=== PATIENT | female | born 1950 | race African-American/Black ===

== ENCOUNTER 2017-01-14 12:29 | Emergency (ER) | payer OTHER ==
[~2017-01-14] VITALS: Ht 152.4 cm; Wt 67.0 kg
[2017-01-14] MEDS ORDERED: KETOROLAC 60MG/2ML VIAL IM ONE (14:45)
[2017-01-14 15:21] VITALS: BP 103/78
== END 2017-01-14 15:57 | disposition home or self-care (01) ==
LOC: ER 15:24
DX: M72.2 Plantar fascial fibromatosis (principal); E11.9 Type 2 diabetes mellitus without complications; I10 Essential (primary) hypertension
CPT/HCPCS: 73630; 96372; 99284; J1885; Z7610

== ENCOUNTER 2018-04-10 17:57 | Inpatient (IN) | payer OTHER, MEDICAID ==
[~2018-04-10] VITALS: Ht 160 cm; Wt 49.9 kg
[~2018-04-10 17:57] MED LIST: DIAZ10TA PO; HYDR-4009 PO
[2018-04-10] MEDS ORDERED: AMIT10TA6 PO (18:05)
[2018-04-10 18:55] LABS: BASOPHILS % 0.5 % (0.0-2.0); EOSINOPHILS % 0.1 % (0.0-5.0); HEMOGLOBIN. 7.5 g/dL (12.0-16.0); LYMPHOCYTES % 13.2 % (20.0-50.0); MEAN PLATELET VOLUME 7.6 fl (7.4-10.4); MONOCYTES % 5.5 % (2.0-8.0); NEUTROPHILS % 80.7 % (40.0-76.0); PLATELET 380 x1000/uL (130-400); RED BLOOD CELL COUNT 2.28 mill/uL (4.2-5.4); RED CELL DISTRIBUTION WIDTH 20.1 % (11.6-14.6)
[2018-04-10 19:04] LABS: INR 1.3; PARTIAL THROMBOPLASTIN TIME 32.1 sec (23.4-31.0); PROTHROMBIN TIME 12.7 sec (9.1-11.1)
[2018-04-10 19:05] LABS: CHLORIDE 108 mEq/L (98-107)
[2018-04-11] VITALS (9 sets, daily range): BP systolic 90–115; BP diastolic 54–70
[2018-04-11] MEDS ORDERED: ACETAMINOPHEN 325MG TABLET PO PRN (01:15)
[2018-04-11] MEDS ORDERED: TEMAZEPAM 15MG CAPSULE PO PRN (01:15)
[2018-04-11] MEDS ORDERED: LORAZEPAM 2MG/ML CPJ IV PRN (01:15)
[2018-04-11] MEDS ORDERED: SODIUM CHLORIDE 0.45% 1,000 ML IV SCH (02:30)
[2018-04-11] MEDS ORDERED: CYANOCOBALAMIN 1000MCG/ML VIAL IM NR (02:30)
[2018-04-11] MEDS ORDERED: POTASSIUM CHLORIDE 20MEQ TABLET SR PO SCH (02:30)
[2018-04-11] MEDS: PANTOPRAZOLE 40MG DR TABLET PO SCH (06:17)
[2018-04-11 07:21] LABS: CHLORIDE 111 mEq/L (98-107)
[2018-04-11 07:24] LABS: BASOPHILS % 0.6 % (0.0-2.0); HEMATOCRIT. 23.4 % (36.0-48.0); HEMOGLOBIN. 7.6 g/dL (12.0-16.0); LYMPHOCYTES % 16.1 % (20.0-50.0); MEAN CORPUSCULAR HEMOGLOBIN 32.7 pg (28.0-32.0); MEAN CORPUSCULAR VOLUME 100.5 fL (81.0-99.0); MEAN PLATELET VOLUME 7.4 fl (7.4-10.4); MONOCYTES % 5.1 % (2.0-8.0); NEUTROPHILS % 78.2 % (40.0-76.0); PLATELET 378 x1000/uL (130-400); RED BLOOD CELL COUNT 2.33 mill/uL (4.2-5.4); RED CELL DISTRIBUTION WIDTH 20.3 % (11.6-14.6)
[2018-04-11] MEDS: FOLIC ACID 1MG TABLET PO SCH (10:32)
[2018-04-11 10:47] LABS: *AMPHETAMINES SCREEN URINE NEGATIVE (NEGATIVE); *BARBITURATES SCREEN URINE NEGATIVE (NEGATIVE); *BENZODIAZEPINES SCREEN URINE PRESUMTIVE POSITIVE (NEGATIVE); *COCAINE SCREEN URINE NEGATIVE (NEGATIVE); CANNABINOID URINE SCREEN PRESUMTIVE POSITIVE (NEGATIVE); METHADONE URINE SCREEN NEGATIVE (NEGATIVE); OPIATES URINE SCREEN PRESUMTIVE POSITIVE (NEGATIVE); PHENCYCLIDINE URINE SCREEN NEGATIVE (NEGATIVE)
[2018-04-11] MEDS ORDERED: HYDROCODONE/ACETAMINOPHEN 5/325MG TABLET PO PRN (20:30)
[2018-04-11] MEDS ORDERED: FUROSEMIDE 40MG/4ML VIAL IV SCH (20:30)
[2018-04-12] VITALS (9 sets, daily range): BP systolic 58–128; BP diastolic 61–84
[2018-04-12 06:33] LABS: HEMATOCRIT 29.9 % (36.0-48.0); HEMOGLOBIN 10.2 g/dL (12.0-16.0); MEAN CORPUSCULAR HEMOGLOBIN 32.5 pg (28.0-32.0); MEAN CORPUSCULAR VOLUME 95.6 fL (81.0-99.0); PLATELET 388 x1000/uL (130-400); RED BLOOD CELL COUNT 3.12 mill/uL (4.2-5.4)
[2018-04-12] MEDS: PANTOPRAZOLE 40MG DR TABLET PO SCH (06:36)
[2018-04-12] MEDS ORDERED: FURO40TA5 PO (07:20)
[2018-04-12] MEDS: FOLIC ACID 1MG TABLET PO SCH (08:52)
[2018-04-12] MEDS ORDERED: FUROSEMIDE 40MG/4ML VIAL IVP SCH ×2 (09:00→14:30)
== END 2018-04-12 20:35 | disposition home health service (06) | DRG 917 ==
LOC: ER 17:57 → 5WST 21:12 → ENRESERV 22:11
PROVIDERS: ADMIT Internal Medicine; ATTEND Internal Medicine
PROC: 30233N1 Transfusion of Nonautologous Red Blood Cells into Peripheral Vein, Percutaneous Approach (ICD-10-PCS; principal; 2018-04-11)
DX: T43.011A Poisoning by tricyclic antidepressants, accidental (unintentional), initial encounter (principal); G92 Toxic encephalopathy; D63.8 Anemia in other chronic diseases classified elsewhere; G90.8 Other disorders of autonomic nervous system; E03.9 Hypothyroidism, unspecified; E86.0 Dehydration; G62.9 Polyneuropathy, unspecified; M79.89 Other specified soft tissue disorders; I10 Essential (primary) hypertension; M19.90 Unspecified osteoarthritis, unspecified site; Z79.899 Other long term (current) drug therapy; Z98.84 Bariatric surgery status; Y92.89 Other specified places as the place of occurrence of the external cause; Z86.711 Personal history of pulmonary embolism
CPT/HCPCS: 36415; 36430; 71045; 80048; 80305; 82962; 83036; 83540; 83550; 83880; 84439; 84443; 84484; 85027; 86850; 86870; 86900; 86920; 93005; 93970; 97162; 99285; J1940; J3420; J7050; P9016

== ENCOUNTER 2018-07-22 12:33 | Inpatient (IN) | payer OTHER, MEDICAID ==
[~2018-07-22] VITALS: Ht 144.8 cm; Wt 62.1 kg
[~2018-07-22 12:33] MED LIST changes: +FURO40TA5 PO
[2018-07-22] MEDS ORDERED: MORPHINE SULFATE 4 MG/ML CPJ (NOT FOR IM USE) IV STA (18:33)
[2018-07-22] MEDS ORDERED: SODIUM CHLORIDE 0.9% 1,000 ML IV ONE ×3 (18:33→22:09)
[2018-07-22] MEDS ORDERED: ONDANSETRON HCL 4MG/2ML INJ IV STA (18:33)
[2018-07-22 19:29] LABS: CLARITY URINE CLEAR (CLEAR); COLOR URINE YELLOW (YELLOW); KETONES URINE NEGATIVE (NEGATIVE); LEUKOCYTE ESTERASE URINE 1+ (NEGATIVE); NITRITE URINE NEGATIVE (NEGATIVE); OCCULT BLOOD URINE NEGATIVE (NEGATIVE); PROTEIN URINE NEGATIVE (NEGATIVE); SPECIFIC GRAVITY URINE 1.014 (1.005-1.030); UROBILINOGEN URINE 0.2 E.U./dL (0.2-1.0)
[2018-07-22 20:02] LABS: HEMOGLOBIN. 9.2 g/dL (12.0-16.0); MEAN CORPUSCULAR HEMOGLOBIN 30.3 pg (28.0-32.0); MEAN CORPUSCULAR VOLUME 95.7 fL (81.0-99.0); MEAN PLATELET VOLUME 8.3 fl (7.4-10.4); PLATELET 422 x1000/uL (130-400); RED BLOOD CELL COUNT 3.03 mill/uL (4.2-5.4); RED CELL DISTRIBUTION WIDTH 15.9 % (11.6-14.6)
[2018-07-22 20:06] LABS: CHLORIDE 102 mEq/L (98-107)
[2018-07-22 20:07] LABS: INR 1.3; PROTHROMBIN TIME 13.3 sec (9.1-11.1)
[2018-07-22] MEDS ORDERED: LEVOFLOXACIN 750MG PREMIX 150 ML IV ONE (20:15)
[2018-07-22] MEDS ORDERED: PIPERACILLIN/TAZ 3.375G PREMIX 50 ML IV ONE (20:15)
[2018-07-22] MEDS ORDERED: DEXTROSE 50% WATER 50ML SYRINGE IV ONE (20:15)
[2018-07-22 20:27] LABS: PLATELET ESTIMATE INCREASED
[2018-07-22] MEDS ORDERED: NOREPINEPHRINE 4 MG in DEXT 5% WATER 246 ML IV ONE (22:30)
[2018-07-22] MEDS ORDERED: GENTAMICIN 80MG PREMIX 100 ML IV ONE (22:30)
[2018-07-22] MEDS ORDERED: NOREPINEPHRINE 4MG/250ML PMX 250 ML IV ONE (23:00)
[2018-07-22] MEDS ORDERED: BUPIVACAINE HCL 0.5% (5MG/ML) 50ML ONE (23:01)
[2018-07-22] MEDS ORDERED: ALBUMIN HUMAN 12.5G/250ML (5%) IV ONE (23:02)
[2018-07-22] MEDS ORDERED: NEOSTIGMINE METHYLSULFATE 1MG/ML 10 ML VIAL ONE (23:13)
[2018-07-22] MEDS ORDERED: ROCURONIUM BROMIDE 10MG/ML VIAL 5ML IV ONE (23:13)
[2018-07-22] MEDS ORDERED: GLYCOPYRROLATE 0.2 MG/ML 2ML VIAL ONE (23:13)
[2018-07-22] MEDS ORDERED: PROPOFOL 200MG/20ML VIAL IV ONE (23:13)
[2018-07-22] MEDS ORDERED: MIDAZOLAM HCL 2 MG/2 ML VIAL ONE (23:13)
[2018-07-22] MEDS ORDERED: FENTANYL CITRATE/PF 50MCG/ML 2ML VIAL ONE (23:13)
[2018-07-22] MEDS ORDERED: LIDOCAINE HCL/PF 1% 10 MG/ML 5ML VIAL ONE (23:13)
[2018-07-22] MEDS ORDERED: SODIUM CHLORIDE 0.9% 10ML VIAL ONE (23:13)
[2018-07-22] MEDS ORDERED: CEFAZOLIN SODIUM 1000MG/VIAL ONE (23:13)
[2018-07-22] MEDS ORDERED: ONDANSETRON HCL 4MG/2ML INJ ONE (23:14)
[2018-07-22] MEDS ORDERED: PHENYLEPHRINE HCL 10 MG/ML 1ML (IV VIAL) IV ONE (23:14)
[2018-07-22] MEDS ORDERED: METOCLOPRAMIDE HCL 10MG/2ML VIAL ONE (23:14)
[2018-07-22] MEDS ORDERED: SUCCINYLCHOLINE CHLORIDE 200MG/10ML IV ONE (23:14)
[2018-07-22] MEDS ORDERED: EPHEDRINE SULFATE 50MG/ML VIAL ONE (23:14)
[2018-07-22] MEDS ORDERED: ETOMIDATE 2MG/ML 10ML VIAL IV ONE (23:17)
[2018-07-23] VITALS (83 sets, daily range): BP systolic 53–174; BP diastolic 24–110
[2018-07-23] MEDS ORDERED: ROCURONIUM BROMIDE 10MG/ML VIAL 5ML IV ONE (00:20)
[2018-07-23] MEDS ORDERED: DEXT 5%/0.45% NACL KCL 20MEQ/L 1,000 ML IV SCH ×2 (02:11→06:00)
[2018-07-23] MEDS ORDERED: CEFAZOLIN 1000MG PREMIX 50 ML IV SCH (02:15)
[2018-07-23] MEDS ORDERED: ONDANSETRON HCL 4MG/2ML INJ IV PRN ×2 (02:15→02:30)
[2018-07-23] MEDS ORDERED: MORPHINE SULFATE 2 MG/ML CPJ (NOT FOR IM USE) IV PRN (02:15)
[2018-07-23] MEDS ORDERED: METRONIDAZOLE 500 MG PREMIX 100 ML IV SCH (02:15)
[2018-07-23] MEDS ORDERED: MORPHINE SULFATE 4 MG/ML CPJ (NOT FOR IM USE) IV PRN (02:30)
[2018-07-23 04:13] LABS: BG BASE EXCESS -10.7 mmol/L (-2.0-2.0); BG CARBOXYHEMOGLOBIN 0.2 % (0.5-1.5); BG DEOXYHEMOGLOBIN 3.1 % (0.0-5.0); BG FRACTION INSPIRED OXYGEN 100; BG HCO3 ACT 16.5 mmol/L (22.0-26.0); BG METHEMOGLOBIN 0.3 % (0.0-1.5); BG OXYGEN SATURATION 96.9 % (92.0-98.5); BG OXYHEMOGLOBIN 96.4 % (94.0-97.0); BG PCO2 41.8 mmHg (35.0-45.0); BG PH 7.214 (7.350-7.450); BG PO2 431.3 mmHg (75.0-100.0); BG SAMPLE SITE A-LINE; BG TIDAL VOLUME(mL) 450 mL; BG TOTAL HEMOGLOBIN 11.2 g/dL (12.0-18.0); BG VENT MODE VENT - A/C; BG VENT RATE 8 set
[2018-07-23] MEDS ORDERED: SODIUM BICARBONATE 8.4% 1 MEQ/ML 50ML SYR IV NR (04:45)
[2018-07-23] MEDS ORDERED: DEXT 5%/0.45% NACL 1000ML 1,000 ML IV SCH (04:45)
[2018-07-23 05:22] LABS: HEMATOCRIT 37.9 % (36.0-48.0); HEMOGLOBIN 12.2 g/dL (12.0-16.0); MEAN CORPUSCULAR HEMOGLOBIN 30.4 pg (28.0-32.0); MEAN CORPUSCULAR VOLUME 94.5 fL (81.0-99.0); PLATELET 266 x1000/uL (130-400)
[2018-07-23 05:26] LABS: CHLORIDE 113 mEq/L (98-107)
[2018-07-23] MEDS: METRONIDAZOLE 500 MG PREMIX 100 ML IV SCH ×3 (08:24→22:52)
[2018-07-23] MEDS: CEFAZOLIN 1000MG PREMIX 50 ML IV SCH ×2 (08:46→17:14)
[2018-07-23] MEDS ORDERED: FAMOTIDINE 20MG/2ML VIAL IV SCH (09:00)
[2018-07-23 09:40] LABS: BG BASE EXCESS -4.7 mmol/L (-2.0-2.0); BG CARBOXYHEMOGLOBIN 0.2 % (0.5-1.5); BG DEOXYHEMOGLOBIN 3.7 % (0.0-5.0); BG FRACTION INSPIRED OXYGEN 50; BG HCO3 ACT 16.8 mmol/L (22.0-26.0); BG METHEMOGLOBIN 0.3 % (0.0-1.5); BG OXYGEN SATURATION 96.3 % (92.0-98.5); BG OXYHEMOGLOBIN 95.8 % (94.0-97.0); BG PCO2 22.4 mmHg (35.0-45.0); BG PH 7.493 (7.350-7.450); BG PO2 290.6 mmHg (75.0-100.0); BG SAMPLE SITE A-LINE; BG TIDAL VOLUME(mL) 450 mL; BG TOTAL HEMOGLOBIN 12.1 g/dL (12.0-18.0); BG VENT MODE VENT - A/C; BG VENT RATE 16 set
[2018-07-23] MEDS: FAMOTIDINE 20MG/2ML VIAL IV SCH (10:22)
[2018-07-23] MEDS ORDERED: POTASSIUM CHLORIDE INJ 40 MEQ in DEXT 5% WATER 250 ML IV NR ×2 (11:30→16:00)
[2018-07-23] MEDS ORDERED: LACTATED RINGERS 500 ML IV ONE (14:15)
[2018-07-23 15:36] LABS: BG BASE EXCESS -7.4 mmol/L (-2.0-2.0); BG CARBOXYHEMOGLOBIN 0.3 % (0.5-1.5); BG DEOXYHEMOGLOBIN 3.4 % (0.0-5.0); BG FRACTION INSPIRED OXYGEN 50; BG HCO3 ACT 15.8 mmol/L (22.0-26.0); BG METHEMOGLOBIN 0.3 % (0.0-1.5); BG OXYGEN SATURATION 96.6 % (92.0-98.5); BG PCO2 25.4 mmHg (35.0-45.0); BG PH 7.411 (7.350-7.450); BG SAMPLE SITE LEFT BRACHIAL; BG TIDAL VOLUME(mL) 450 mL; BG TOTAL HEMOGLOBIN 10.8 g/dL (12.0-18.0); BG VENT MODE VENT - A/C; BG VENT RATE 16 set
[2018-07-23 15:37] LABS: HEMATOCRIT 33.1 % (36.0-48.0); HEMOGLOBIN 10.8 g/dL (12.0-16.0); MEAN CORPUSCULAR HEMOGLOBIN 29.7 pg (28.0-32.0); MEAN CORPUSCULAR VOLUME 90.7 fL (81.0-99.0); PLATELET 247 x1000/uL (130-400); RED BLOOD CELL COUNT 3.65 mill/uL (4.2-5.4)
[2018-07-23] MEDS: NOREPINEPHRINE 4 MG in DEXT 5% WATER 246 ML IV PRN ×2 (15:45→23:16)
[2018-07-23 15:46] LABS: PHOSPHORUS 3.4 mg/dL (2.5-4.9)
[2018-07-23] MEDS: SODIUM BICARBONATE 50 MEQ in DEXT 5%/0.45% NACL 1000ML 1,000 ML IV SCH ×3 (17:14)
[2018-07-23] MEDS ORDERED: MAGNESIUM 2 G PREMIX 50 ML IV NR (21:00)
[2018-07-24] VITALS (95 sets, daily range): BP systolic 68–135; BP diastolic 19–99
[2018-07-24] MEDS: CEFAZOLIN 1000MG PREMIX 50 ML IV SCH (00:47)
[2018-07-24] MEDS: NOREPINEPHRINE 4 MG in DEXT 5% WATER 246 ML IV PRN (03:50)
[2018-07-24] MEDS: SODIUM BICARBONATE 50 MEQ in DEXT 5%/0.45% NACL 1000ML 1,000 ML IV SCH ×6 (04:23→15:11)
[2018-07-24 05:52] LABS: HEMATOCRIT. 36.6 % (36.0-48.0); HEMOGLOBIN. 11.9 g/dL (12.0-16.0); MEAN CORPUSCULAR HEMOGLOBIN 30.3 pg (28.0-32.0); MEAN CORPUSCULAR VOLUME 93.3 fL (81.0-99.0); MEAN PLATELET VOLUME 9.5 fl (7.4-10.4); PLATELET 198 x1000/uL (130-400); RED BLOOD CELL COUNT 3.92 mill/uL (4.2-5.4); RED CELL DISTRIBUTION WIDTH 17.7 % (11.6-14.6)
[2018-07-24] MEDS ORDERED: NOREPINEPHRINE 32 MG in DEXT 5% WATER 468 ML IV PRN (07:30)
[2018-07-24] MEDS ORDERED: NOREPINEPHRINE 16 MG in DEXT 5% WATER 234 ML IV PRN (07:30)
[2018-07-24 07:46] LABS: PLATELET ESTIMATE NORMAL
[2018-07-24 07:55] LABS: BG BASE EXCESS -6.8 mmol/L (-2.0-2.0); BG CARBOXYHEMOGLOBIN 0.2 % (0.5-1.5); BG DEOXYHEMOGLOBIN 3.8 % (0.0-5.0); BG FRACTION INSPIRED OXYGEN 40; BG HCO3 ACT 15.8 mmol/L (22.0-26.0); BG METHEMOGLOBIN 0.3 % (0.0-1.5); BG OXYGEN SATURATION 96.2 % (92.0-98.5); BG OXYHEMOGLOBIN 95.7 % (94.0-97.0); BG PCO2 23.7 mmHg (35.0-45.0); BG PH 7.441 (7.350-7.450); BG SAMPLE SITE RIGHT BRACHIAL; BG TIDAL VOLUME(mL) 450 mL; BG TOTAL HEMOGLOBIN 10.9 g/dL (12.0-18.0); BG VENT MODE VENT - A/C; BG VENT RATE 16 set
[2018-07-24] MEDS: FAMOTIDINE 20MG/2ML VIAL IV SCH (09:18)
[2018-07-24] MEDS ORDERED: SODIUM CHLORIDE 0.9% 500 ML IV ONE (11:30)
[2018-07-24] MEDS ORDERED: ALBUMIN HUMAN 25GM/100ML (25%) IV NR (11:30)
[2018-07-24] MEDS ORDERED: SODIUM BICARBONATE 8.4% 1 MEQ/ML 50ML SYR IV NR (11:30)
[2018-07-24] MEDS: INSULIN LISPRO 100 UNITS/ML SUBCUT SCH ×3 (12:00→21:00)
[2018-07-24] MEDS: BLOOD SUGAR DIAGNOSTIC STRIP TEST SCH ×2 (12:32→18:03)
[2018-07-24] MEDS: METRONIDAZOLE 500 MG PREMIX 100 ML IV SCH ×2 (13:39→21:17)
[2018-07-24] MEDS ORDERED: LEVOFLOXACIN 500MG PREMIX 100 ML IV NR (14:00)
[2018-07-24 15:34] LABS: BG BASE EXCESS -5.2 mmol/L (-2.0-2.0); BG CARBOXYHEMOGLOBIN 0.2 % (0.5-1.5); BG DEOXYHEMOGLOBIN 3.6 % (0.0-5.0); BG FRACTION INSPIRED OXYGEN 40; BG HCO3 ACT 17.1 mmol/L (22.0-26.0); BG METHEMOGLOBIN 0.3 % (0.0-1.5); BG OXYGEN SATURATION 96.4 % (92.0-98.5); BG OXYHEMOGLOBIN 95.9 % (94.0-97.0); BG PH 7.489 (7.350-7.450); BG PO2 214.8 mmHg (75.0-100.0); BG PRESSURE SUPPORT 10; BG SAMPLE SITE LEFT RADIAL; BG TOTAL HEMOGLOBIN 8.6 g/dL (12.0-18.0); BG VENT MODE VENT - CPAP
[2018-07-24 17:40] LABS: BG BASE EXCESS -5.4 mmol/L (-2.0-2.0); BG CARBOXYHEMOGLOBIN 0.2 % (0.5-1.5); BG DEOXYHEMOGLOBIN 3.6 % (0.0-5.0); BG FRACTION INSPIRED OXYGEN 40; BG HCO3 ACT 17.1 mmol/L (22.0-26.0); BG METHEMOGLOBIN 0.3 % (0.0-1.5); BG OXYGEN SATURATION 96.4 % (92.0-98.5); BG OXYHEMOGLOBIN 95.9 % (94.0-97.0); BG PCO2 23.5 mmHg (35.0-45.0); BG PH 7.479 (7.350-7.450); BG PRESSURE SUPPORT 2; BG SAMPLE SITE LEFT RADIAL; BG TOTAL HEMOGLOBIN 8.8 g/dL (12.0-18.0); BG VENT MODE VENT - CPAP
[2018-07-24 20:00] LABS: BG BASE EXCESS -5.3 mmol/L (-2.0-2.0); BG CARBOXYHEMOGLOBIN 0.3 % (0.5-1.5); BG DEOXYHEMOGLOBIN 3.4 % (0.0-5.0); BG FRACTION INSPIRED OXYGEN 40; BG HCO3 ACT 17.3 mmol/L (22.0-26.0); BG METHEMOGLOBIN 0.3 % (0.0-1.5); BG OXYGEN SATURATION 96.6 % (92.0-98.5); BG PCO2 24.5 mmHg (35.0-45.0); BG PH 7.467 (7.350-7.450); BG SAMPLE SITE RIGHT BRACHIAL; BG VENT MODE MASK - AEROSOL
[2018-07-24] MEDS: DEXTROSE 50% WATER 50ML SYRINGE IV PRN (20:40)
[2018-07-24] MEDS: DEXT 5%/0.45% NACL 1000ML 1,000 ML IV SCH (21:59)
[2018-07-25] VITALS (91 sets, daily range): BP systolic 83–185; BP diastolic 24–110
[2018-07-25] MEDS: SODIUM BICARBONATE 50 MEQ in DEXT 5%/0.45% NACL 1000ML 1,000 ML IV SCH ×6 (01:14→13:04)
[2018-07-25] MEDS: DEXTROSE 50% WATER 50ML SYRINGE IV PRN ×6 (06:36→23:39)
[2018-07-25] MEDS: BLOOD SUGAR DIAGNOSTIC STRIP TEST SCH ×4 (06:36→18:00)
[2018-07-25] MEDS: INSULIN LISPRO 100 UNITS/ML SUBCUT SCH ×4 (07:00→21:00)
[2018-07-25 08:04] LABS: HEMATOCRIT 26.1 % (36.0-48.0); HEMOGLOBIN 8.6 g/dL (12.0-16.0); MEAN CORPUSCULAR HEMOGLOBIN 30.5 pg (28.0-32.0); PLATELET 53 x1000/uL (130-400); RED BLOOD CELL COUNT 2.84 mill/uL (4.2-5.4); RED CELL DISTRIBUTION WIDTH 16.9 % (11.6-14.6)
[2018-07-25 08:09] LABS: BG BASE EXCESS -4.9 mmol/L (-2.0-2.0); BG CARBOXYHEMOGLOBIN 0.3 % (0.5-1.5); BG DEOXYHEMOGLOBIN 3.8 % (0.0-5.0); BG HCO3 ACT 18.5 mmol/L (22.0-26.0); BG METHEMOGLOBIN 0.2 % (0.0-1.5); BG OXYGEN SATURATION 96.2 % (92.0-98.5); BG OXYHEMOGLOBIN 95.7 % (94.0-97.0); BG PCO2 27.4 mmHg (35.0-45.0); BG PH 7.447 (7.350-7.450); BG PO2 151.7 mmHg (75.0-100.0); BG SAMPLE SITE LEFT RADIAL; BG TOTAL HEMOGLOBIN 7.3 g/dL (12.0-18.0); BG VENT MODE NASAL CANNULA
[2018-07-25 08:55] LABS: PHOSPHORUS 2.8 mg/dL (2.5-4.9)
[2018-07-25] MEDS: METRONIDAZOLE 500 MG PREMIX 100 ML IV SCH ×3 (09:54→21:54)
[2018-07-25] MEDS: DEXT 5%/0.45% NACL 1000ML 1,000 ML IV SCH (09:54)
[2018-07-25] MEDS: FAMOTIDINE 20MG/2ML VIAL IV SCH (09:54)
[2018-07-25] MEDS ORDERED: MAGNESIUM 1 G PREMIX 100 ML IV NR (11:00)
[2018-07-25 11:49] LABS: HEMATOCRIT 26.1 % (36.0-48.0); HEMOGLOBIN 8.6 g/dL (12.0-16.0); MEAN CORPUSCULAR HEMOGLOBIN 30.8 pg (28.0-32.0); MEAN CORPUSCULAR VOLUME 93.6 fL (81.0-99.0); PLATELET 52 x1000/uL (130-400); RED BLOOD CELL COUNT 2.78 mill/uL (4.2-5.4); RED CELL DISTRIBUTION WIDTH 16.9 % (11.6-14.6)
[2018-07-25] MEDS: LEVOFLOXACIN 250MG PREMIX 50 ML IV SCH (13:04)
[2018-07-25] MEDS ORDERED: LIDOCAINE HCL/PF 1% 2ML VIAL ONE (15:11)
[2018-07-25 23:48] LABS: INR 1.9; PARTIAL THROMBOPLASTIN TIME 73.8 sec (23.4-31.0); PROTHROMBIN TIME 19.1 sec (9.1-11.1)
[2018-07-26] VITALS (37 sets, daily range): BP systolic 78–204; BP diastolic 50–106
[2018-07-26] MEDS: DEXT 10% WATER 1,000 ML IV SCH ×3 (00:27→19:27)
[2018-07-26] MEDS: METRONIDAZOLE 500 MG PREMIX 100 ML IV SCH ×3 (04:46→20:48)
[2018-07-26 04:50] LABS: HEMOGLOBIN 12.6 g/dL (12.0-16.0); MEAN CORPUSCULAR HEMOGLOBIN 29.8 pg (28.0-32.0); MEAN CORPUSCULAR VOLUME 89.7 fL (81.0-99.0); RED BLOOD CELL COUNT 4.23 mill/uL (4.2-5.4); RED CELL DISTRIBUTION WIDTH 17.5 % (11.6-14.6)
[2018-07-26 05:06] LABS: PLATELET 37 x1000/uL (130-400)
[2018-07-26] MEDS: BLOOD SUGAR DIAGNOSTIC STRIP TEST SCH ×3 (06:00→17:42)
[2018-07-26] MEDS: INSULIN LISPRO 100 UNITS/ML SUBCUT SCH ×4 (07:00→21:00)
[2018-07-26] MEDS: FAMOTIDINE 20MG/2ML VIAL IV SCH (10:26)
[2018-07-26 12:30] LABS: BG BASE EXCESS -4.6 mmol/L (-2.0-2.0); BG CARBOXYHEMOGLOBIN 0.1 % (0.5-1.5); BG FRACTION INSPIRED OXYGEN 21; BG HCO3 ACT 19.3 mmol/L (22.0-26.0); BG METHEMOGLOBIN 0.3 % (0.0-1.5); BG OXYHEMOGLOBIN 94.6 % (94.0-97.0); BG PCO2 31.3 mmHg (35.0-45.0); BG PH 7.407 (7.350-7.450); BG PO2 89.4 mmHg (75.0-100.0); BG SAMPLE SITE LEFT RADIAL; BG TOTAL HEMOGLOBIN 10.9 g/dL (12.0-18.0); BG VENT MODE ROOM AIR
[2018-07-26] MEDS ORDERED: SODIUM BICARBONATE 4% (2.4MEQ) 5ML VIAL IV ONE (13:00)
[2018-07-26] MEDS ORDERED: LIDOCAINE HCL 1% 20ML VIAL (Pyxis) INJ ONE (13:00)
[2018-07-26] MEDS ORDERED: IOHEXOL-300 100 ML BOTTLE ONE (13:00)
[2018-07-26] MEDS: LEVOFLOXACIN 250MG PREMIX 50 ML IV SCH (14:51)
[2018-07-26 16:11] LABS: CHLORIDE 107 mEq/L (98-107)
[2018-07-26] MEDS ORDERED: MORPHINE SULFATE 4 MG/ML CPJ (NOT FOR IM USE) IV PRN (17:30)
[2018-07-27] VITALS (17 sets, daily range): BP systolic 90–122; BP diastolic 54–80
[2018-07-27] MEDS: BLOOD SUGAR DIAGNOSTIC STRIP TEST SCH ×4 (00:47→17:46)
[2018-07-27] MEDS: INSULIN LISPRO 100 UNITS/ML SUBCUT SCH ×4 (01:00→17:41)
[2018-07-27] MEDS: METRONIDAZOLE 500 MG PREMIX 100 ML IV SCH ×3 (03:49→20:14)
[2018-07-27 07:29] LABS: HEMOGLOBIN 11.4 g/dL (12.0-16.0); MEAN CORPUSCULAR HEMOGLOBIN 29.9 pg (28.0-32.0); MEAN CORPUSCULAR VOLUME 91.7 fL (81.0-99.0); RED BLOOD CELL COUNT 3.82 mill/uL (4.2-5.4); RED CELL DISTRIBUTION WIDTH 17.9 % (11.6-14.6)
[2018-07-27 07:43] LABS: CHLORIDE 103 mEq/L (98-107)
[2018-07-27] MEDS: DEXT 10% WATER 1,000 ML IV SCH ×2 (07:44→20:14)
[2018-07-27 08:23] LABS: BG BASE EXCESS -3.5 mmol/L (-2.0-2.0); BG CARBOXYHEMOGLOBIN 0.3 % (0.5-1.5); BG DEOXYHEMOGLOBIN 3.2 % (0.0-5.0); BG FRACTION INSPIRED OXYGEN 32; BG HCO3 ACT 20.8 mmol/L (22.0-26.0); BG METHEMOGLOBIN 0.3 % (0.0-1.5); BG OXYGEN SATURATION 96.8 % (92.0-98.5); BG OXYHEMOGLOBIN 96.2 % (94.0-97.0); BG PCO2 34.7 mmHg (35.0-45.0); BG PH 7.395 (7.350-7.450); BG PO2 139.8 mmHg (75.0-100.0); BG SAMPLE SITE LEFT RADIAL; BG TOTAL HEMOGLOBIN 10.8 g/dL (12.0-18.0); BG VENT MODE NASAL CANNULA
[2018-07-27] MEDS: FAMOTIDINE 20MG/2ML VIAL IV SCH (09:51)
[2018-07-27 09:59] LABS: PLATELET 30 x1000/uL (130-400)
[2018-07-27] MEDS: LEVOFLOXACIN 250MG PREMIX 50 ML IV SCH (12:38)
[2018-07-27] MEDS ORDERED: LACTULOSE 300 ML in WATER FOR IRRIGATION,STERILE 700 ML IR SCH (15:00)
[2018-07-27] MEDS ORDERED: FUROSEMIDE 40MG/4ML VIAL IVP NR (15:45)
[2018-07-27] MEDS: DEXTROSE 50% WATER 50ML SYRINGE IV PRN (17:45)
[2018-07-28] VITALS (12 sets, daily range): BP systolic 93–139; BP diastolic 56–80
[2018-07-28] MEDS: METRONIDAZOLE 500 MG PREMIX 100 ML IV SCH ×3 (04:14→20:34)
[2018-07-28] MEDS: BLOOD SUGAR DIAGNOSTIC STRIP TEST SCH ×4 (06:03→18:14)
[2018-07-28 07:13] LABS: CHLORIDE 99 mEq/L (98-107)
[2018-07-28 07:22] LABS: PHOSPHORUS 3.3 mg/dL (2.5-4.9)
[2018-07-28 07:32] LABS: INR 1.7; PROTHROMBIN TIME 16.5 sec (9.1-11.1)
[2018-07-28] MEDS: INSULIN LISPRO 100 UNITS/ML SUBCUT SCH ×4 (08:00→21:00)
[2018-07-28 09:09] LABS: HEMATOCRIT 31.5 % (36.0-48.0); HEMOGLOBIN 10.6 g/dL (12.0-16.0); MEAN CORPUSCULAR HEMOGLOBIN 29.8 pg (28.0-32.0); MEAN CORPUSCULAR VOLUME 89.1 fL (81.0-99.0); RED BLOOD CELL COUNT 3.54 mill/uL (4.2-5.4); RED CELL DISTRIBUTION WIDTH 17.5 % (11.6-14.6)
[2018-07-28] MEDS: FAMOTIDINE 20MG/2ML VIAL IV SCH (10:20)
[2018-07-28] MEDS: DEXT 10% WATER 1,000 ML IV SCH (12:03)
[2018-07-28] MEDS: DEXTROSE 50% WATER 50ML SYRINGE IV PRN (12:42)
[2018-07-28] MEDS: LEVOFLOXACIN 250MG PREMIX 50 ML IV SCH (13:17)
[2018-07-28] MEDS: MAGNESIUM 1 G PREMIX 100 ML IV NR ×2 (18:37→20:24)
[2018-07-28] MEDS ORDERED: TOTAL PARENTERAL NUTRITION IV SCH (21:00)
[2018-07-29] VITALS (52 sets, daily range): BP systolic 58–143; BP diastolic 20–105
[2018-07-29] MEDS: BLOOD SUGAR DIAGNOSTIC STRIP TEST SCH ×3 (00:15→08:00)
[2018-07-29] MEDS ORDERED: DEXTROSE 50% WATER 50ML SYRINGE IV PRN (00:30)
[2018-07-29] MEDS: METRONIDAZOLE 500 MG PREMIX 100 ML IV SCH ×3 (03:50→21:01)
[2018-07-29 09:01] LABS: HEMATOCRIT 28.6 % (36.0-48.0); HEMOGLOBIN 9.5 g/dL (12.0-16.0); MEAN CORPUSCULAR HEMOGLOBIN 30.2 pg (28.0-32.0); MEAN CORPUSCULAR VOLUME 91.4 fL (81.0-99.0); MEAN PLATELET VOLUME 11.3 fl (7.4-10.4); RED BLOOD CELL COUNT 3.13 mill/uL (4.2-5.4); RED CELL DISTRIBUTION WIDTH 17.5 % (11.6-14.6)
[2018-07-29 09:10] LABS: PHOSPHORUS 3.7 mg/dL (2.5-4.9)
[2018-07-29 09:27] LABS: PLATELET 23 x1000/uL (130-400)
[2018-07-29] MEDS: INSULIN LISPRO 100 UNITS/ML SUBCUT SCH ×3 (09:41→18:00)
[2018-07-29] MEDS: FAMOTIDINE 20MG/2ML VIAL IV SCH (09:41)
[2018-07-29 10:40] LABS: PLATELET ESTIMATE MARKEDLY DECREASED
[2018-07-29 11:06] LABS: BG BASE EXCESS -7.6 mmol/L (-2.0-2.0); BG CARBOXYHEMOGLOBIN 1.1 % (0.5-1.5); BG FRACTION INSPIRED OXYGEN 32; BG HCO3 ACT 20.3 mmol/L (22.0-26.0); BG METHEMOGLOBIN 0.3 % (0.0-1.5); BG OXYGEN SATURATION 92.9 % (92.0-98.5); BG OXYHEMOGLOBIN 91.6 % (94.0-97.0); BG PCO2 53.5 mmHg (35.0-45.0); BG PH 7.198 (7.350-7.450); BG PO2 79.7 mmHg (75.0-100.0); BG SAMPLE SITE LEFT RADIAL; BG TOTAL HEMOGLOBIN 9.6 g/dL (12.0-18.0); BG VENT MODE NASAL CANNULA
[2018-07-29] MEDS: LEVOFLOXACIN 250MG PREMIX 50 ML IV SCH (13:09)
[2018-07-29] MEDS ORDERED: ETOMIDATE 2MG/ML 10ML VIAL IV ONE (13:41)
[2018-07-29] MEDS ORDERED: SUCCINYLCHOLINE CHLORIDE 200MG/10ML IV ONE (13:41)
[2018-07-29 13:52] LABS: BG BASE EXCESS -7.8 mmol/L (-2.0-2.0); BG CARBOXYHEMOGLOBIN 1.2 % (0.5-1.5); BG DEOXYHEMOGLOBIN 9.3 % (0.0-5.0); BG FRACTION INSPIRED OXYGEN 50; BG HCO3 ACT 20.7 mmol/L (22.0-26.0); BG METHEMOGLOBIN 0.3 % (0.0-1.5); BG OXYGEN SATURATION 90.6 % (92.0-98.5); BG OXYHEMOGLOBIN 89.2 % (94.0-97.0); BG PCO2 57.6 mmHg (35.0-45.0); BG PH 7.173 (7.350-7.450); BG PO2 70.8 mmHg (75.0-100.0); BG SAMPLE SITE LEFT RADIAL; BG TOTAL HEMOGLOBIN 9.5 g/dL (12.0-18.0); BG VENT MODE MASK - BIPAP; BG VENT RATE 16 set
[2018-07-29] MEDS ORDERED: FUROSEMIDE 40MG/4ML VIAL IVP NR (14:30)
[2018-07-29] MEDS ORDERED: DEXT 10% WATER 1,000 ML IV SCH (16:45)
[2018-07-29] MEDS ORDERED: MORPHINE SULFATE 4 MG/ML CPJ (NOT FOR IM USE) IV PRN (16:45)
[2018-07-29] MEDS ORDERED: SODIUM CHLORIDE 0.9% 500 ML IV ONE (17:00)
[2018-07-29 18:11] LABS: PLATELET 35 x1000/uL (130-400)
[2018-07-29 18:34] LABS: BG CARBOXYHEMOGLOBIN 0.5 % (0.5-1.5); BG DEOXYHEMOGLOBIN 3.4 % (0.0-5.0); BG FRACTION INSPIRED OXYGEN 75; BG HCO3 ACT 17.4 mmol/L (22.0-26.0); BG METHEMOGLOBIN 0.3 % (0.0-1.5); BG OXYGEN SATURATION 96.6 % (92.0-98.5); BG OXYHEMOGLOBIN 95.8 % (94.0-97.0); BG PCO2 39.4 mmHg (35.0-45.0); BG PH 7.262 (7.350-7.450); BG SAMPLE SITE LEFT RADIAL; BG TIDAL VOLUME(mL) 550 mL; BG TOTAL HEMOGLOBIN 10.5 g/dL (12.0-18.0); BG VENT MODE VENT - A/C; BG VENT RATE 16 set
[2018-07-29] MEDS: NOREPINEPHRINE 8 MG in DEXT 5% WATER 242 ML IV PRN (18:39)
[2018-07-29] MEDS ORDERED: SODIUM BICARBONATE 8.4% 1 MEQ/ML 50ML SYR IV NR (19:45)
[2018-07-29] MEDS: IPRATROPIUM/ALBUTEROL 0.5-3(2.5)MG/3ML NEB HHN SCH (20:43)
[2018-07-29] MEDS ORDERED: TOTAL PARENTERAL NUTRITION IV SCH (21:00)
[2018-07-29] MEDS: FAT EMULSIONS 500 ML IV SCH (21:01)
[2018-07-30] VITALS (107 sets, daily range): BP systolic 55–160; BP diastolic 24–99
[2018-07-30] MEDS: BLOOD SUGAR DIAGNOSTIC STRIP TEST SCH ×5 (00:40→18:00)
[2018-07-30] MEDS: IPRATROPIUM/ALBUTEROL 0.5-3(2.5)MG/3ML NEB HHN SCH ×2 (01:29→20:11)
[2018-07-30] MEDS: INSULIN LISPRO 100 UNITS/ML SUBCUT SCH ×5 (04:00→22:01)
[2018-07-30 06:10] LABS: HEMATOCRIT 32.5 % (36.0-48.0); MEAN CORPUSCULAR HEMOGLOBIN 33.8 pg (28.0-32.0); MEAN CORPUSCULAR VOLUME 91.2 fL (81.0-99.0); PLATELET 55 x1000/uL (130-400); RED BLOOD CELL COUNT 3.57 mill/uL (4.2-5.4); RED CELL DISTRIBUTION WIDTH 17.1 % (11.6-14.6)
[2018-07-30] MEDS: METRONIDAZOLE 500 MG PREMIX 100 ML IV SCH (06:50)
[2018-07-30 06:54] LABS: PHOSPHORUS 2.5 mg/dL (2.5-4.9)
[2018-07-30 08:04] LABS: BG BASE EXCESS -9.1 mmol/L (-2.0-2.0); BG CARBOXYHEMOGLOBIN 1.5 % (0.5-1.5); BG HCO3 ACT 17.1 mmol/L (22.0-26.0); BG METHEMOGLOBIN 0.3 % (0.0-1.5); BG OXYGEN SATURATION 74.5 % (92.0-98.5); BG OXYHEMOGLOBIN 73.2 % (94.0-97.0); BG PCO2 38.3 mmHg (35.0-45.0); BG PH 7.268 (7.350-7.450); BG PO2 41.8 mmHg (75.0-100.0); BG SAMPLE SITE LEFT RADIAL; BG TIDAL VOLUME(mL) 500 mL; BG TOTAL HEMOGLOBIN 11.2 g/dL (12.0-18.0); BG VENT MODE VENT - A/C; BG VENT RATE 16 set
[2018-07-30] MEDS ORDERED: SODIUM BICARBONATE 8.4% 1 MEQ/ML 50ML SYR IV NR ×3 (08:15→12:00)
[2018-07-30] MEDS: FAMOTIDINE 20MG/2ML VIAL IV SCH (08:40)
[2018-07-30] MEDS: PHENYLEPHRINE 40 MG in DEXT 5% WATER 246 ML IV PRN ×2 (08:43→12:24)
[2018-07-30] MEDS ORDERED: MAGNESIUM 1 G PREMIX 100 ML IV NR ×2 (10:00→15:00)
[2018-07-30] MEDS ORDERED: MEROPENEM 500 MG in SODIUM CHLORIDE 0.9% 50 ML IV SCH (10:00)
[2018-07-30 10:04] LABS: BG CARBOXYHEMOGLOBIN 0.5 % (0.5-1.5); BG DEOXYHEMOGLOBIN 6.8 % (0.0-5.0); BG FRACTION INSPIRED OXYGEN 100; BG HCO3 ACT 16.5 mmol/L (22.0-26.0); BG METHEMOGLOBIN 0.3 % (0.0-1.5); BG OXYGEN SATURATION 93.1 % (92.0-98.5); BG OXYHEMOGLOBIN 92.4 % (94.0-97.0); BG PCO2 30.5 mmHg (35.0-45.0); BG PO2 70.3 mmHg (75.0-100.0); BG SAMPLE SITE RIGHT BRACHIAL; BG TIDAL VOLUME(mL) 500 mL; BG TOTAL HEMOGLOBIN 11.4 g/dL (12.0-18.0); BG VENT MODE VENT - A/C; BG VENT RATE 16 set
[2018-07-30] MEDS: MEROPENEM 1000MG in NORMAL SALINE 100ML IV SCH ×2 (10:30→21:33)
[2018-07-30] MEDS: LEVOFLOXACIN 250MG PREMIX 50 ML IV SCH (11:23)
[2018-07-30] MEDS: NOREPINEPHRINE 8 MG in DEXT 5% WATER 242 ML IV PRN (11:35)
[2018-07-30] MEDS ORDERED: DOPAMINE 400MG/250ML PREMIX 250 ML IV PRN (11:45)
[2018-07-30] MEDS ORDERED: PHENYLEPHRINE 80 MG in DEXT 5% WATER 492 ML IV PRN (11:45)
[2018-07-30] MEDS ORDERED: ALBUMIN HUMAN 25GM/100ML (25%) IV NR (12:00)
[2018-07-30] MEDS ORDERED: VASOPRESSIN 10 UNIT in SODIUM CHLORIDE 0.9% 99.5 ML IV PRN (12:00)
[2018-07-30] MEDS ORDERED: VANCOMYCIN 1500MG in DEXTROSE 5% WATER 250ML IV SCH (12:00)
[2018-07-30] MEDS ORDERED: FUROSEMIDE 40MG/4ML VIAL IVP NR (12:15)
[2018-07-30] MEDS: HYDROCORTISONE SOD SUCCINATE 100 MG/2 ML VIAL IV SCH ×2 (14:06→16:11)
[2018-07-30 15:20] LABS: BG BASE EXCESS -5.3 mmol/L (-2.0-2.0); BG CARBOXYHEMOGLOBIN 0.9 % (0.5-1.5); BG DEOXYHEMOGLOBIN 46.2 % (0.0-5.0); BG HCO3 ACT 21.9 mmol/L (22.0-26.0); BG METHEMOGLOBIN 0.3 % (0.0-1.5); BG OXYGEN SATURATION 53.2 % (92.0-98.5); BG OXYHEMOGLOBIN 52.6 % (94.0-97.0); BG PO2 < 30.3 mmHg (75.0-100.0); BG SAMPLE SITE LEFT RADIAL; BG TIDAL VOLUME(mL) 500 mL; BG TOTAL HEMOGLOBIN 9.5 g/dL (12.0-18.0); BG VENT MODE VENT - A/C; BG VENT RATE 16 set
[2018-07-30] MEDS: NOREPINEPHRINE 16 MG in DEXT 5% WATER 234 ML IV PRN (16:19)
[2018-07-30 19:48] LABS: BG BASE EXCESS -6.9 mmol/L (-2.0-2.0); BG CARBOXYHEMOGLOBIN 0.8 % (0.5-1.5); BG DEOXYHEMOGLOBIN 8.7 % (0.0-5.0); BG FRACTION INSPIRED OXYGEN 100; BG HCO3 ACT 18.5 mmol/L (22.0-26.0); BG METHEMOGLOBIN 0.3 % (0.0-1.5); BG OXYGEN SATURATION 91.2 % (92.0-98.5); BG OXYHEMOGLOBIN 90.2 % (94.0-97.0); BG PH 7.318 (7.350-7.450); BG PO2 63.8 mmHg (75.0-100.0); BG SAMPLE SITE LEFT FEMORAL; BG TOTAL HEMOGLOBIN 10.3 g/dL (12.0-18.0); BG VENT MODE VENT - PCV; BG VENT RATE 16 set
[2018-07-30] MEDS ORDERED: TOTAL PARENTERAL NUTRITION 1,800 ML IV SCH (21:00)
[2018-07-30] MEDS: PHENYLEPHRINE 80 MG in DEXT 5% WATER 492 ML IV PRN (23:51)
[2018-07-31] VITALS (101 sets, daily range): BP systolic 69–150; BP diastolic 16–122
[2018-07-31] MEDS: BLOOD SUGAR DIAGNOSTIC STRIP TEST SCH ×6 (00:07→20:39)
[2018-07-31] MEDS: INSULIN LISPRO 100 UNITS/ML SUBCUT SCH ×6 (00:13→20:39)
[2018-07-31] MEDS: IPRATROPIUM/ALBUTEROL 0.5-3(2.5)MG/3ML NEB HHN SCH ×4 (02:14→20:31)
[2018-07-31] MEDS: NOREPINEPHRINE 16 MG in DEXT 5% WATER 234 ML IV PRN (02:37)
[2018-07-31] MEDS: PHENYLEPHRINE 80 MG in DEXT 5% WATER 492 ML IV PRN ×3 (07:47→23:47)
[2018-07-31 08:29] LABS: BG BASE EXCESS -1.9 mmol/L (-2.0-2.0); BG CARBOXYHEMOGLOBIN 0.2 % (0.5-1.5); BG DEOXYHEMOGLOBIN 2.5 % (0.0-5.0); BG FRACTION INSPIRED OXYGEN 100; BG HCO3 ACT 20.4 mmol/L (22.0-26.0); BG METHEMOGLOBIN 1.4 % (0.0-1.5); BG OXYGEN SATURATION 97.5 % (92.0-98.5); BG OXYHEMOGLOBIN 95.9 % (94.0-97.0); BG PH 7.496 (7.350-7.450); BG PO2 230.7 mmHg (75.0-100.0); BG SAMPLE SITE LEFT RADIAL; BG TOTAL HEMOGLOBIN 10.3 g/dL (12.0-18.0); BG VENT MODE VENT - PCV
[2018-07-31 08:49] LABS: HEMATOCRIT. 28.8 % (36.0-48.0); HEMOGLOBIN. 9.6 g/dL (12.0-16.0); MEAN CORPUSCULAR HEMOGLOBIN 29.9 pg (28.0-32.0); MEAN CORPUSCULAR VOLUME 89.8 fL (81.0-99.0); MEAN PLATELET VOLUME 10.7 fl (7.4-10.4); RED CELL DISTRIBUTION WIDTH 16.9 % (11.6-14.6)
[2018-07-31] MEDS: FAMOTIDINE 20MG/2ML VIAL IV SCH (08:49)
[2018-07-31] MEDS: HYDROCORTISONE SOD SUCCINATE 100 MG/2 ML VIAL IV SCH ×2 (08:49→17:09)
[2018-07-31] MEDS: MEROPENEM 1000MG in NORMAL SALINE 100ML IV SCH ×2 (08:49→22:00)
[2018-07-31 08:57] LABS: PLATELET 26 x1000/uL (130-400)
[2018-07-31 10:14] LABS: PLATELET ESTIMATE MARKEDLY DECREASED
[2018-07-31] MEDS ORDERED: INSULIN GLARGINE UD 100 UNITS/ML SYR SUBCUT NR (11:30)
[2018-07-31] MEDS: VANCOMYCIN 750 MG PREMIX 150 ML IV SCH (13:13)
[2018-07-31 16:11] LABS: BG BASE EXCESS -4.3 mmol/L (-2.0-2.0); BG CARBOXYHEMOGLOBIN 0.3 % (0.5-1.5); BG FRACTION INSPIRED OXYGEN 100; BG HCO3 ACT 19.2 mmol/L (22.0-26.0); BG METHEMOGLOBIN 0.3 % (0.0-1.5); BG OXYHEMOGLOBIN 97.4 % (94.0-97.0); BG PCO2 29.6 mmHg (35.0-45.0); BG PO2 179.2 mmHg (75.0-100.0); BG SAMPLE SITE LEFT RADIAL; BG TOTAL HEMOGLOBIN 9.3 g/dL (12.0-18.0); BG VENT MODE VENT - PCV; BG VENT RATE 16 set
[2018-07-31] MEDS: FAT EMULSIONS 500 ML IV SCH (20:38)
[2018-07-31] MEDS ORDERED: TOTAL PARENTERAL NUTRITION 1,800 ML IV SCH (21:00)
[2018-08-01] VITALS (93 sets, daily range): BP systolic 72–119; BP diastolic 41–73
[2018-08-01] MEDS: INSULIN LISPRO 100 UNITS/ML SUBCUT SCH ×6 (00:55→20:15)
[2018-08-01] MEDS: BLOOD SUGAR DIAGNOSTIC STRIP TEST SCH ×6 (00:55→20:14)
[2018-08-01] MEDS: IPRATROPIUM/ALBUTEROL 0.5-3(2.5)MG/3ML NEB HHN SCH ×4 (01:08→20:49)
[2018-08-01] MEDS: PHENYLEPHRINE 80 MG in DEXT 5% WATER 492 ML IV PRN ×3 (07:02→23:26)
[2018-08-01 08:27] LABS: CHLORIDE 92 mEq/L (98-107)
[2018-08-01 08:28] LABS: PHOSPHORUS 2.1 mg/dL (2.5-4.9)
[2018-08-01] MEDS: NOREPINEPHRINE 16 MG in DEXT 5% WATER 234 ML IV PRN (08:55)
[2018-08-01] MEDS: INSULIN GLARGINE UD 100 UNITS/ML SYR SUBCUT SCH (09:02)
[2018-08-01] MEDS: FAMOTIDINE 20MG/2ML VIAL IV SCH (09:03)
[2018-08-01] MEDS: HYDROCORTISONE SOD SUCCINATE 100 MG/2 ML VIAL IV SCH ×2 (09:03→17:22)
[2018-08-01] MEDS: MEROPENEM 1000MG in NORMAL SALINE 100ML IV SCH ×2 (09:03→21:10)
[2018-08-01 09:07] LABS: BG BASE EXCESS -6.1 mmol/L (-2.0-2.0); BG CARBOXYHEMOGLOBIN 0.9 % (0.5-1.5); BG DEOXYHEMOGLOBIN 3.9 % (0.0-5.0); BG FRACTION INSPIRED OXYGEN 60; BG HCO3 ACT 16.7 mmol/L (22.0-26.0); BG METHEMOGLOBIN 0.2 % (0.0-1.5); BG OXYGEN SATURATION 96.1 % (92.0-98.5); BG PCO2 24.2 mmHg (35.0-45.0); BG PH 7.458 (7.350-7.450); BG PO2 85.4 mmHg (75.0-100.0); BG SAMPLE SITE LEFT BRACHIAL; BG TOTAL HEMOGLOBIN 8.5 g/dL (12.0-18.0); BG VENT MODE VENT - PCV; BG VENT RATE 16 set
[2018-08-01 10:21] LABS: HEMATOCRIT 24.2 % (36.0-48.0); MEAN CORPUSCULAR VOLUME 90.1 fL (81.0-99.0); PLATELET 79 x1000/uL (130-400); RED BLOOD CELL COUNT 2.69 mill/uL (4.2-5.4); RED CELL DISTRIBUTION WIDTH 16.7 % (11.6-14.6)
[2018-08-01 10:54] LABS: MEAN CORPUSCULAR HEMOGLOBIN 31.5 pg (28.0-32.0)
[2018-08-01 10:55] LABS: HEMOGLOBIN 8.5 g/dL (12.0-16.0)
[2018-08-01] MEDS: VANCOMYCIN 750 MG PREMIX 150 ML IV SCH (12:35)
[2018-08-01] MEDS ORDERED: BISACODYL 10MG SUPP PR NR (16:15)
[2018-08-01] MEDS ORDERED: TOTAL PARENTERAL NUTRITION 1,800 ML IV SCH (21:00)
[2018-08-01 23:30] LABS: HEMATOCRIT 32.5 % (36.0-48.0); HEMOGLOBIN 10.5 g/dL (12.0-16.0)
[2018-08-02] VITALS (92 sets, daily range): BP systolic 81–151; BP diastolic 54–101
[2018-08-02] MEDS: BLOOD SUGAR DIAGNOSTIC STRIP TEST SCH ×7 (00:02→23:38)
[2018-08-02] MEDS: INSULIN LISPRO 100 UNITS/ML SUBCUT SCH ×7 (00:06→23:41)
[2018-08-02] MEDS: IPRATROPIUM/ALBUTEROL 0.5-3(2.5)MG/3ML NEB HHN SCH ×3 (01:49→20:42)
[2018-08-02 04:50] LABS: HEMATOCRIT 33.3 % (36.0-48.0); HEMOGLOBIN 10.9 g/dL (12.0-16.0); MEAN CORPUSCULAR HEMOGLOBIN 29.7 pg (28.0-32.0); MEAN CORPUSCULAR VOLUME 90.6 fL (81.0-99.0); PLATELET 61 x1000/uL (130-400); RED BLOOD CELL COUNT 3.68 mill/uL (4.2-5.4); RED CELL DISTRIBUTION WIDTH 16.3 % (11.6-14.6)
[2018-08-02] MEDS: PHENYLEPHRINE 80 MG in DEXT 5% WATER 492 ML IV PRN (06:33)
[2018-08-02 07:43] LABS: BG BASE EXCESS -3.6 mmol/L (-2.0-2.0); BG CARBOXYHEMOGLOBIN 0.3 % (0.5-1.5); BG DEOXYHEMOGLOBIN 1.7 % (0.0-5.0); BG HCO3 ACT 18.5 mmol/L (22.0-26.0); BG METHEMOGLOBIN 0.3 % (0.0-1.5); BG OXYGEN SATURATION 98.3 % (92.0-98.5); BG OXYHEMOGLOBIN 97.7 % (94.0-97.0); BG PCO2 24.2 mmHg (35.0-45.0); BG PH 7.501 (7.350-7.450); BG PIP 25 cmH2O; BG SAMPLE SITE LEFT RADIAL; BG TOTAL HEMOGLOBIN 9.5 g/dL (12.0-18.0); BG VENT MODE VENT - PCV; BG VENT RATE 16 set
[2018-08-02] MEDS: FAMOTIDINE 20MG/2ML VIAL IV SCH (09:00)
[2018-08-02] MEDS: HYDROCORTISONE SOD SUCCINATE 100 MG/2 ML VIAL IV SCH ×3 (09:00→21:36)
[2018-08-02] MEDS: MEROPENEM 1000MG in NORMAL SALINE 100ML IV SCH ×2 (10:15→21:37)
[2018-08-02] MEDS: INSULIN GLARGINE UD 100 UNITS/ML SYR SUBCUT SCH (10:25)
[2018-08-02] MEDS ORDERED: SODIUM CHLORIDE 0.9% 250 ML IV ONE (10:45)
[2018-08-02] MEDS ORDERED: NOREPINEPHRINE 16 MG in SODIUM CHLORIDE 0.9% 234 ML IV PRN (12:00)
[2018-08-02] MEDS: VANCOMYCIN 750 MG PREMIX 150 ML IV SCH (12:39)
[2018-08-02] MEDS: PHENYLEPHRINE 80 MG in SODIUM CHLORIDE 0.9% 492 ML IV PRN (14:50)
[2018-08-02] MEDS ORDERED: FLUCONAZOLE 400MG/200ML BAG 200 ML IV NR (15:30)
[2018-08-02] MEDS ORDERED: MORPHINE SULFATE 4 MG/ML CPJ (NOT FOR IM USE) IV PRN (16:45)
[2018-08-02] MEDS ORDERED: SODIUM CHLORIDE 0.9% 500 ML IV ONE (17:30)
[2018-08-02] MEDS: FAT EMULSIONS 500 ML IV SCH (20:05)
[2018-08-02] MEDS ORDERED: TOTAL PARENTERAL NUTRITION 1,800 ML IV SCH (21:00)
[2018-08-03] VITALS (78 sets, daily range): BP systolic 82–134; BP diastolic 49–92
[2018-08-03] MEDS: IPRATROPIUM/ALBUTEROL 0.5-3(2.5)MG/3ML NEB HHN SCH ×3 (00:09→21:40)
[2018-08-03] MEDS: PHENYLEPHRINE 80 MG in SODIUM CHLORIDE 0.9% 492 ML IV PRN ×2 (01:06→12:13)
[2018-08-03] MEDS: BLOOD SUGAR DIAGNOSTIC STRIP TEST SCH ×4 (03:28→17:47)
[2018-08-03] MEDS: INSULIN LISPRO 100 UNITS/ML SUBCUT SCH ×4 (03:29→18:00)
[2018-08-03] MEDS: HYDROCORTISONE SOD SUCCINATE 100 MG/2 ML VIAL IV SCH ×2 (05:02→16:01)
[2018-08-03 06:47] LABS: RED BLOOD CELL COUNT 3.06 mill/uL (4.2-5.4)
[2018-08-03 06:48] LABS: HEMATOCRIT 28.2 % (36.0-48.0); HEMOGLOBIN 10.7 g/dL (12.0-16.0); MEAN CORPUSCULAR VOLUME 92.2 fL (81.0-99.0)
[2018-08-03 06:50] LABS: RED CELL DISTRIBUTION WIDTH 16.4 % (11.6-14.6)
[2018-08-03 08:14] LABS: CHLORIDE 96 mEq/L (98-107)
[2018-08-03 08:20] LABS: PHOSPHORUS 3.2 mg/dL (2.5-4.9)
[2018-08-03] MEDS ORDERED: DEXT 10% WATER 1,000 ML IV SCH (09:00)
[2018-08-03] MEDS: FAMOTIDINE 20MG/2ML VIAL IV SCH (09:07)
[2018-08-03 09:42] LABS: BG BASE EXCESS -3.1 mmol/L (-2.0-2.0); BG CARBOXYHEMOGLOBIN 0.3 % (0.5-1.5); BG DEOXYHEMOGLOBIN 2.6 % (0.0-5.0); BG FRACTION INSPIRED OXYGEN 35; BG HCO3 ACT 18.8 mmol/L (22.0-26.0); BG METHEMOGLOBIN 0.3 % (0.0-1.5); BG OXYGEN SATURATION 97.4 % (92.0-98.5); BG OXYHEMOGLOBIN 96.8 % (94.0-97.0); BG PCO2 23.4 mmHg (35.0-45.0); BG PH 7.523 (7.350-7.450); BG PO2 107.3 mmHg (75.0-100.0); BG SAMPLE SITE LEFT RADIAL; BG TOTAL HEMOGLOBIN 8.7 g/dL (12.0-18.0); BG VENT MODE VENT - PCV; BG VENT RATE 16 set
[2018-08-03] MEDS: INSULIN GLARGINE UD 100 UNITS/ML SYR SUBCUT SCH (09:43)
[2018-08-03] MEDS: MEROPENEM 1000MG in NORMAL SALINE 100ML IV SCH ×2 (09:44→22:31)
[2018-08-03] MEDS: ACETAMINOPHEN 650MG SUPP PR PRN (10:49)
[2018-08-03] MEDS: VANCOMYCIN 750 MG PREMIX 150 ML IV SCH (12:07)
[2018-08-03] MEDS: IPRATROPIUM/ALBUTEROL 0.5-3(2.5)MG/3ML NEB HHN PRN ×2 (12:21→16:07)
[2018-08-03] MEDS ORDERED: FLUCONAZOLE 200 MG/100ML BAG 100 ML IV SCH (14:00)
[2018-08-03] MEDS ORDERED: SODIUM CHLORIDE 0.9% 500 ML IV ONE (15:30)
[2018-08-03 17:03] LABS: BG BASE EXCESS -3.7 mmol/L (-2.0-2.0); BG CARBOXYHEMOGLOBIN 0.3 % (0.5-1.5); BG DEOXYHEMOGLOBIN 3.3 % (0.0-5.0); BG FRACTION INSPIRED OXYGEN 30; BG HCO3 ACT 19.8 mmol/L (22.0-26.0); BG METHEMOGLOBIN 0.3 % (0.0-1.5); BG OXYGEN SATURATION 96.7 % (92.0-98.5); BG OXYHEMOGLOBIN 96.1 % (94.0-97.0); BG PH 7.437 (7.350-7.450); BG PO2 102.1 mmHg (75.0-100.0); BG SAMPLE SITE LEFT RADIAL; BG TIDAL VOLUME(mL) 450 mL; BG VENT MODE VENT - A/C; BG VENT RATE 16 set
[2018-08-03] MEDS ORDERED: TOTAL PARENTERAL NUTRITION 1,800 ML IV SCH (21:00)
[2018-08-04] VITALS (44 sets, daily range): BP systolic 105–157; BP diastolic 50–100
[2018-08-04] MEDS: HYDROCORTISONE SOD SUCCINATE 100 MG/2 ML VIAL IV SCH ×3 (01:17→13:49)
[2018-08-04] MEDS: INSULIN LISPRO 100 UNITS/ML SUBCUT SCH ×5 (01:27→23:56)
[2018-08-04] MEDS: IPRATROPIUM/ALBUTEROL 0.5-3(2.5)MG/3ML NEB HHN SCH ×4 (02:16→21:02)
[2018-08-04 06:22] LABS: HEMATOCRIT 24.7 % (36.0-48.0); MEAN CORPUSCULAR HEMOGLOBIN 30.1 pg (28.0-32.0); MEAN CORPUSCULAR VOLUME 90.9 fL (81.0-99.0); PLATELET 54 x1000/uL (130-400); RED BLOOD CELL COUNT 2.72 mill/uL (4.2-5.4); RED CELL DISTRIBUTION WIDTH 15.9 % (11.6-14.6)
[2018-08-04 06:24] LABS: HEMOGLOBIN 8.2 g/dL (12.0-16.0)
[2018-08-04] MEDS: BLOOD SUGAR DIAGNOSTIC STRIP TEST SCH ×5 (06:37→23:50)
[2018-08-04 08:25] LABS: BG BASE EXCESS -3.4 mmol/L (-2.0-2.0); BG CARBOXYHEMOGLOBIN 0.7 % (0.5-1.5); BG DEOXYHEMOGLOBIN 3.2 % (0.0-5.0); BG FRACTION INSPIRED OXYGEN 30; BG HCO3 ACT 20.4 mmol/L (22.0-26.0); BG METHEMOGLOBIN 0.3 % (0.0-1.5); BG OXYGEN SATURATION 96.8 % (92.0-98.5); BG OXYHEMOGLOBIN 95.8 % (94.0-97.0); BG PCO2 31.8 mmHg (35.0-45.0); BG PH 7.425 (7.350-7.450); BG PO2 105.3 mmHg (75.0-100.0); BG SAMPLE SITE LEFT RADIAL; BG TIDAL VOLUME(mL) 450 mL; BG TOTAL HEMOGLOBIN 8.9 g/dL (12.0-18.0); BG VENT MODE VENT - A/C; BG VENT RATE 16 set
[2018-08-04] MEDS: FAMOTIDINE 20MG/2ML VIAL IV SCH (09:01)
[2018-08-04] MEDS: MEROPENEM 1000MG in NORMAL SALINE 100ML IV SCH ×2 (09:02→21:13)
[2018-08-04] MEDS: INSULIN GLARGINE UD 100 UNITS/ML SYR SUBCUT SCH (09:02)
[2018-08-04] MEDS ORDERED: FLUCONAZOLE 400MG/200ML BAG 200 ML IV SCH (14:00)
[2018-08-04 17:18] LABS: BG BASE EXCESS -0.6 mmol/L (-2.0-2.0); BG CARBOXYHEMOGLOBIN 0.6 % (0.5-1.5); BG DEOXYHEMOGLOBIN 2.7 % (0.0-5.0); BG FRACTION INSPIRED OXYGEN 30; BG HCO3 ACT 23.2 mmol/L (22.0-26.0); BG METHEMOGLOBIN 0.3 % (0.0-1.5); BG OXYGEN SATURATION 97.3 % (92.0-98.5); BG OXYHEMOGLOBIN 96.4 % (94.0-97.0); BG PCO2 34.7 mmHg (35.0-45.0); BG PH 7.443 (7.350-7.450); BG PO2 110.2 mmHg (75.0-100.0); BG PRESSURE SUPPORT 15; BG SAMPLE SITE LEFT RADIAL; BG TOTAL HEMOGLOBIN 9.1 g/dL (12.0-18.0); BG VENT MODE VENT - CPAP
[2018-08-04 18:58] LABS: HEMATOCRIT 25.8 % (36.0-48.0); HEMOGLOBIN 8.4 g/dL (12.0-16.0); MEAN CORPUSCULAR HEMOGLOBIN 29.6 pg (28.0-32.0); PLATELET 57 x1000/uL (130-400); RED BLOOD CELL COUNT 2.84 mill/uL (4.2-5.4); RED CELL DISTRIBUTION WIDTH 16.2 % (11.6-14.6)
[2018-08-04] MEDS ORDERED: FLUCONAZOLE 200 MG/100ML BAG 100 ML IV SCH (19:15)
[2018-08-04] MEDS ORDERED: TOTAL PARENTERAL NUTRITION 1,800 ML IV SCH (21:00)
[2018-08-05] VITALS (38 sets, daily range): BP systolic 116–158; BP diastolic 59–90
[2018-08-05] MEDS: IPRATROPIUM/ALBUTEROL 0.5-3(2.5)MG/3ML NEB HHN SCH ×4 (02:34→20:00)
[2018-08-05 06:16] LABS: CHLORIDE 103 mEq/L (98-107)
[2018-08-05] MEDS: INSULIN LISPRO 100 UNITS/ML SUBCUT SCH ×3 (06:37→18:00)
[2018-08-05] MEDS: BLOOD SUGAR DIAGNOSTIC STRIP TEST SCH ×3 (06:37→18:26)
[2018-08-05] MEDS: HYDROCORTISONE SOD SUCCINATE 100 MG/2 ML VIAL IV SCH ×2 (09:18→17:04)
[2018-08-05] MEDS: FAMOTIDINE 20MG/2ML VIAL IV SCH (09:18)
[2018-08-05 09:36] LABS: BG BASE EXCESS -1.8 mmol/L (-2.0-2.0); BG CARBOXYHEMOGLOBIN 1.3 % (0.5-1.5); BG DEOXYHEMOGLOBIN 2.4 % (0.0-5.0); BG FRACTION INSPIRED OXYGEN 30; BG HCO3 ACT 22.7 mmol/L (22.0-26.0); BG METHEMOGLOBIN 0.3 % (0.0-1.5); BG OXYGEN SATURATION 97.6 % (92.0-98.5); BG PH 7.406 (7.350-7.450); BG PO2 119.5 mmHg (75.0-100.0); BG PRESSURE SUPPORT 8; BG SAMPLE SITE LEFT RADIAL; BG TOTAL HEMOGLOBIN 7.4 g/dL (12.0-18.0); BG VENT MODE VENT - CPAP
[2018-08-05] MEDS: MEROPENEM 1000MG in NORMAL SALINE 100ML IV SCH (10:24)
[2018-08-05] MEDS: INSULIN GLARGINE UD 100 UNITS/ML SYR SUBCUT SCH (10:25)
[2018-08-05 13:22] LABS: HEMATOCRIT 23.8 % (36.0-48.0); HEMOGLOBIN 7.7 g/dL (12.0-16.0); MEAN CORPUSCULAR HEMOGLOBIN 30.8 pg (28.0-32.0); MEAN CORPUSCULAR VOLUME 94.9 fL (81.0-99.0); RED CELL DISTRIBUTION WIDTH 16.2 % (11.6-14.6)
[2018-08-05] MEDS: FLUCONAZOLE 200 MG/100ML BAG 100 ML IV SCH (13:47)
[2018-08-05 13:52] LABS: BG BASE EXCESS -1.2 mmol/L (-2.0-2.0); BG CARBOXYHEMOGLOBIN 1.5 % (0.5-1.5); BG DEOXYHEMOGLOBIN 3.2 % (0.0-5.0); BG FRACTION INSPIRED OXYGEN 30; BG HCO3 ACT 23.2 mmol/L (22.0-26.0); BG METHEMOGLOBIN 0.3 % (0.0-1.5); BG OXYGEN SATURATION 96.7 % (92.0-98.5); BG PCO2 37.2 mmHg (35.0-45.0); BG PH 7.413 (7.350-7.450); BG SAMPLE SITE LEFT RADIAL; BG TOTAL HEMOGLOBIN 7.4 g/dL (12.0-18.0); BG VENT MODE T-TUBE
[2018-08-05] MEDS ORDERED: TOTAL PARENTERAL NUTRITION 1,800 ML IV SCH (21:00)
[2018-08-05] MEDS: FAT EMULSIONS 500 ML IV SCH (21:43)
[2018-08-05] MEDS: MEROPENEM 1,000 MG in SODIUM CHLORIDE 0.9% 100 ML IV SCH (21:44)
[2018-08-06] VITALS (39 sets, daily range): BP systolic 121–166; BP diastolic 70–93
[2018-08-06] MEDS: INSULIN LISPRO 100 UNITS/ML SUBCUT SCH ×4 (00:36→19:40)
[2018-08-06] MEDS: BLOOD SUGAR DIAGNOSTIC STRIP TEST SCH ×4 (00:39→18:00)
[2018-08-06] MEDS: IPRATROPIUM/ALBUTEROL 0.5-3(2.5)MG/3ML NEB HHN SCH ×4 (00:59→20:28)
[2018-08-06 05:11] LABS: HEMATOCRIT 29.4 % (36.0-48.0); MEAN CORPUSCULAR VOLUME 93.8 fL (81.0-99.0); PLATELET 66 x1000/uL (130-400); RED BLOOD CELL COUNT 3.13 mill/uL (4.2-5.4); RED CELL DISTRIBUTION WIDTH 15.9 % (11.6-14.6)
[2018-08-06 05:31] LABS: CHLORIDE 103 mEq/L (98-107)
[2018-08-06 06:35] LABS: HEMOGLOBIN 10.7 g/dL (12.0-16.0)
[2018-08-06 06:36] LABS: MEAN CORPUSCULAR HEMOGLOBIN 34.2 pg (28.0-32.0)
[2018-08-06 07:30] LABS: BG BASE EXCESS -3.8 mmol/L (-2.0-2.0); BG CARBOXYHEMOGLOBIN 1.1 % (0.5-1.5); BG DEOXYHEMOGLOBIN 3.1 % (0.0-5.0); BG HCO3 ACT 20.1 mmol/L (22.0-26.0); BG METHEMOGLOBIN 0.1 % (0.0-1.5); BG OXYGEN SATURATION 96.9 % (92.0-98.5); BG OXYHEMOGLOBIN 95.7 % (94.0-97.0); BG PCO2 32.5 mmHg (35.0-45.0); BG PO2 97.7 mmHg (75.0-100.0); BG SAMPLE SITE LEFT RADIAL; BG TOTAL HEMOGLOBIN 9.9 g/dL (12.0-18.0); BG VENT MODE T-TUBE
[2018-08-06] MEDS ORDERED: POTASSIUM CHLORIDE INJ 40 MEQ in DEXT 5% WATER 250 ML IV NR (09:30)
[2018-08-06] MEDS: HYDROCORTISONE SOD SUCCINATE 100 MG/2 ML VIAL IV SCH ×2 (09:53→19:39)
[2018-08-06] MEDS: FAMOTIDINE 20MG/2ML VIAL IV SCH (09:53)
[2018-08-06] MEDS: MEROPENEM 1,000 MG in SODIUM CHLORIDE 0.9% 100 ML IV SCH ×2 (10:09→21:58)
[2018-08-06] MEDS: INSULIN GLARGINE UD 100 UNITS/ML SYR SUBCUT SCH (10:11)
[2018-08-06] MEDS: FLUCONAZOLE 200 MG/100ML BAG 100 ML IV SCH (13:46)
[2018-08-06] MEDS: ACETAMINOPHEN 650MG SUPP PR PRN (14:33)
[2018-08-06] MEDS ORDERED: LIDOCAINE HCL/PF 1% 2ML VIAL ONE (14:55)
[2018-08-06] MEDS: MICAFUNGIN 100 MG in SODIUM CHLORIDE 0.9% 100 ML IV SCH (19:39)
[2018-08-06] MEDS ORDERED: TOTAL PARENTERAL NUTRITION 1,800 ML IV SCH (21:00)
[2018-08-07] VITALS (31 sets, daily range): BP systolic 137–167; BP diastolic 72–99
[2018-08-07] MEDS: BLOOD SUGAR DIAGNOSTIC STRIP TEST SCH ×5 (00:39→23:15)
[2018-08-07] MEDS: IPRATROPIUM/ALBUTEROL 0.5-3(2.5)MG/3ML NEB HHN SCH ×4 (01:59→19:51)
[2018-08-07] MEDS: INSULIN LISPRO 100 UNITS/ML SUBCUT SCH ×5 (06:00→23:15)
[2018-08-07] MEDS: MEROPENEM 1,000 MG in SODIUM CHLORIDE 0.9% 100 ML IV SCH ×2 (09:30→20:41)
[2018-08-07] MEDS: FAMOTIDINE 20MG/2ML VIAL IV SCH (09:30)
[2018-08-07] MEDS: HYDROCORTISONE SOD SUCCINATE 100 MG/2 ML VIAL IV SCH (09:30)
[2018-08-07] MEDS: INSULIN GLARGINE UD 100 UNITS/ML SYR SUBCUT SCH (11:03)
[2018-08-07 16:44] LABS: MEAN CORPUSCULAR HEMOGLOBIN 30.4 pg (28.0-32.0); MEAN CORPUSCULAR VOLUME 94.3 fL (81.0-99.0); PLATELET 100 x1000/uL (130-400); RED BLOOD CELL COUNT 2.97 mill/uL (4.2-5.4); RED CELL DISTRIBUTION WIDTH 15.8 % (11.6-14.6)
[2018-08-07 17:06] LABS: CHLORIDE 112 mEq/L (98-107)
[2018-08-07] MEDS: MICAFUNGIN 100 MG in SODIUM CHLORIDE 0.9% 100 ML IV SCH (19:33)
[2018-08-07] MEDS: FAT EMULSIONS 500 ML IV SCH (20:41)
[2018-08-07] MEDS ORDERED: TOTAL PARENTERAL NUTRITION 1,800 ML IV SCH (21:00)
[2018-08-08] VITALS (38 sets, daily range): BP systolic 143–174; BP diastolic 82–104
[2018-08-08] MEDS: IPRATROPIUM/ALBUTEROL 0.5-3(2.5)MG/3ML NEB HHN SCH ×4 (01:54→20:06)
[2018-08-08] MEDS: INSULIN LISPRO 100 UNITS/ML SUBCUT SCH ×3 (05:08→17:53)
[2018-08-08] MEDS: BLOOD SUGAR DIAGNOSTIC STRIP TEST SCH ×3 (05:08→17:52)
[2018-08-08 05:58] LABS: HEMOGLOBIN. 10.6 g/dL (12.0-16.0); MEAN CORPUSCULAR HEMOGLOBIN 34.2 pg (28.0-32.0); MEAN CORPUSCULAR VOLUME 96.5 fL (81.0-99.0); MEAN PLATELET VOLUME 10.9 fl (7.4-10.4); PLATELET 123 x1000/uL (130-400); RED BLOOD CELL COUNT 3.11 mill/uL (4.2-5.4); RED CELL DISTRIBUTION WIDTH 16.3 % (11.6-14.6)
[2018-08-08 06:02] LABS: CHLORIDE 112 mEq/L (98-107)
[2018-08-08] MEDS: MEROPENEM 1,000 MG in SODIUM CHLORIDE 0.9% 100 ML IV SCH ×2 (08:52→21:29)
[2018-08-08] MEDS: FAMOTIDINE 20MG/2ML VIAL IV SCH (08:52)
[2018-08-08] MEDS: HYDROCORTISONE SOD SUCCINATE 100 MG/2 ML VIAL IV SCH (08:53)
[2018-08-08] MEDS: NYSTATIN POWDER 15GM TOP SCH ×3 (09:00→18:06)
[2018-08-08] MEDS: INSULIN GLARGINE UD 100 UNITS/ML SYR SUBCUT SCH (10:04)
[2018-08-08 10:16] LABS: PLATELET ESTIMATE SLIGHTLY DECREASED
[2018-08-08] MEDS ORDERED: DIATR MEGLU/DIATRIZOATE SOLN 30ML PO SCH (12:00)
[2018-08-08] MEDS ORDERED: POTASSIUM CHLORIDE INJ 40 MEQ in DEXT 5% WATER 250 ML IV SCH (14:00)
[2018-08-08] MEDS: MICAFUNGIN 100 MG in SODIUM CHLORIDE 0.9% 100 ML IV SCH (16:48)
[2018-08-08] MEDS ORDERED: TOTAL PARENTERAL NUTRITION 1,800 ML IV SCH (21:00)
[2018-08-09] VITALS (37 sets, daily range): BP systolic 138–172; BP diastolic 71–123
[2018-08-09] MEDS: DEXTROSE 50% WATER 50ML SYRINGE IV PRN (01:16)
[2018-08-09] MEDS: IPRATROPIUM/ALBUTEROL 0.5-3(2.5)MG/3ML NEB HHN SCH ×4 (02:18→20:49)
[2018-08-09] MEDS: INSULIN LISPRO 100 UNITS/ML SUBCUT SCH ×4 (05:32→17:31)
[2018-08-09] MEDS: BLOOD SUGAR DIAGNOSTIC STRIP TEST SCH ×4 (05:33→17:30)
[2018-08-09 05:39] LABS: HEMATOCRIT 27.8 % (36.0-48.0); HEMOGLOBIN 9.2 g/dL (12.0-16.0); MEAN CORPUSCULAR HEMOGLOBIN 31.6 pg (28.0-32.0); MEAN CORPUSCULAR VOLUME 95.5 fL (81.0-99.0); PLATELET 105 x1000/uL (130-400); RED BLOOD CELL COUNT 2.91 mill/uL (4.2-5.4); RED CELL DISTRIBUTION WIDTH 16.9 % (11.6-14.6)
[2018-08-09 05:44] LABS: CHLORIDE 117 mEq/L (98-107)
[2018-08-09 05:52] LABS: PHOSPHORUS 5.7 mg/dL (2.5-4.9)
[2018-08-09] MEDS: FAMOTIDINE 20MG/2ML VIAL IV SCH (08:19)
[2018-08-09] MEDS: HYDROCORTISONE SOD SUCCINATE 100 MG/2 ML VIAL IV SCH (08:19)
[2018-08-09] MEDS: MEROPENEM 1,000 MG in SODIUM CHLORIDE 0.9% 100 ML IV SCH (08:19)
[2018-08-09] MEDS: NYSTATIN POWDER 15GM TOP SCH ×2 (08:58→16:28)
[2018-08-09] MEDS: INSULIN GLARGINE UD 100 UNITS/ML SYR SUBCUT SCH (09:47)
[2018-08-09] MEDS ORDERED: DEXT 10% WATER 1,000 ML IV SCH (11:00)
[2018-08-09 15:32] LABS: BG BASE EXCESS 4.6 mmol/L (-2.0-2.0); BG CARBOXYHEMOGLOBIN 0.8 % (0.5-1.5); BG DEOXYHEMOGLOBIN 2.7 % (0.0-5.0); BG FRACTION INSPIRED OXYGEN 28; BG HCO3 ACT 29.4 mmol/L (22.0-26.0); BG OXYGEN SATURATION 97.3 % (92.0-98.5); BG OXYHEMOGLOBIN 96.5 % (94.0-97.0); BG PH 7.433 (7.350-7.450); BG PO2 110.9 mmHg (75.0-100.0); BG SAMPLE SITE LEFT RADIAL; BG TOTAL HEMOGLOBIN 10.2 g/dL (12.0-18.0); BG VENT MODE NASAL CANNULA
[2018-08-09] MEDS: MICAFUNGIN 100 MG in SODIUM CHLORIDE 0.9% 100 ML IV SCH (16:28)
[2018-08-09] MEDS ORDERED: TOTAL PARENTERAL NUTRITION 2,000 ML IV SCH (18:00)
[2018-08-10] VITALS (42 sets, daily range): BP systolic 124–175; BP diastolic 56–95
[2018-08-10] MEDS: BLOOD SUGAR DIAGNOSTIC STRIP TEST SCH ×4 (00:40→17:45)
[2018-08-10] MEDS: MEROPENEM 1,000 MG in SODIUM CHLORIDE 0.9% 100 ML IV SCH ×3 (00:40→21:29)
[2018-08-10] MEDS: FAT EMULSIONS 500 ML IV SCH (00:40)
[2018-08-10] MEDS: IPRATROPIUM/ALBUTEROL 0.5-3(2.5)MG/3ML NEB HHN SCH ×4 (01:48→21:25)
[2018-08-10 05:30] LABS: HEMATOCRIT 31.6 % (36.0-48.0); HEMOGLOBIN 10.3 g/dL (12.0-16.0); MEAN CORPUSCULAR HEMOGLOBIN 31.5 pg (28.0-32.0); MEAN CORPUSCULAR VOLUME 96.8 fL (81.0-99.0); PLATELET 116 x1000/uL (130-400); RED BLOOD CELL COUNT 3.26 mill/uL (4.2-5.4); RED CELL DISTRIBUTION WIDTH 18.8 % (11.6-14.6)
[2018-08-10 05:59] LABS: CHLORIDE 119 mEq/L (98-107)
[2018-08-10] MEDS: INSULIN LISPRO 100 UNITS/ML SUBCUT SCH ×4 (06:00→17:46)
[2018-08-10] MEDS: FAMOTIDINE 20MG/2ML VIAL IV SCH (08:56)
[2018-08-10] MEDS: HYDROCORTISONE SOD SUCCINATE 100 MG/2 ML VIAL IV SCH (08:56)
[2018-08-10] MEDS: NYSTATIN POWDER 15GM TOP SCH ×2 (08:58→17:45)
[2018-08-10] MEDS ORDERED: DEXT 10% WATER 1,000 ML IV SCH (13:30)
[2018-08-10] MEDS: MICAFUNGIN 100 MG in SODIUM CHLORIDE 0.9% 100 ML IV SCH (17:45)
[2018-08-10] MEDS ORDERED: TOTAL PARENTERAL NUTRITION 1,500 ML IV SCH (18:00)
[2018-08-11] VITALS (26 sets, daily range): BP systolic 138–173; BP diastolic 79–98
[2018-08-11] MEDS: IPRATROPIUM/ALBUTEROL 0.5-3(2.5)MG/3ML NEB HHN SCH ×4 (02:15→20:39)
[2018-08-11] MEDS: HYDRALAZINE 20MG/ML VIAL IV PRN ×2 (05:07→08:57)
[2018-08-11] MEDS: INSULIN LISPRO 100 UNITS/ML SUBCUT SCH ×5 (06:00→23:26)
[2018-08-11] MEDS: BLOOD SUGAR DIAGNOSTIC STRIP TEST SCH ×5 (06:04→23:26)
[2018-08-11] MEDS: FAMOTIDINE 20MG/2ML VIAL IV SCH (08:39)
[2018-08-11] MEDS: MEROPENEM 1,000 MG in SODIUM CHLORIDE 0.9% 100 ML IV SCH ×2 (08:39→21:37)
[2018-08-11] MEDS: HYDROCORTISONE SOD SUCCINATE 100 MG/2 ML VIAL IV SCH (08:39)
[2018-08-11] MEDS: NYSTATIN POWDER 15GM TOP SCH ×2 (09:00→16:59)
[2018-08-11 09:37] LABS: BASOPHILS % 1.2 % (0.0-2.0); EOSINOPHILS % 3.9 % (0.0-5.0); HEMOGLOBIN. 10.8 g/dL (12.0-16.0); LYMPHOCYTES % 10.7 % (20.0-50.0); MEAN CORPUSCULAR HEMOGLOBIN 31.7 pg (28.0-32.0); MEAN CORPUSCULAR VOLUME 96.7 fL (81.0-99.0); MONOCYTES % 8.2 % (2.0-8.0); PLATELET 118 x1000/uL (130-400); RED BLOOD CELL COUNT 3.42 mill/uL (4.2-5.4); RED CELL DISTRIBUTION WIDTH 20.2 % (11.6-14.6)
[2018-08-11 09:43] LABS: CHLORIDE 121 mEq/L (98-107)
[2018-08-11] MEDS: DEXT 10% WATER 1,000 ML IV SCH (15:23)
[2018-08-11] MEDS ORDERED: KCL 20MEQ/100ML PREMIX 100 ML IV ONE (15:30)
[2018-08-11] MEDS: MICAFUNGIN 100 MG in SODIUM CHLORIDE 0.9% 100 ML IV SCH (17:52)
[2018-08-12 00:16] VITALS: BP 120/74
[2018-08-12] MEDS: IPRATROPIUM/ALBUTEROL 0.5-3(2.5)MG/3ML NEB HHN SCH ×4 (01:10→20:15)
[2018-08-12 04:29] VITALS: BP 116/73
[2018-08-12] MEDS: INSULIN LISPRO 100 UNITS/ML SUBCUT SCH ×4 (06:00→23:38)
[2018-08-12] MEDS: BLOOD SUGAR DIAGNOSTIC STRIP TEST SCH ×4 (06:27→23:34)
[2018-08-12] MEDS: DEXT 10% WATER 1,000 ML IV SCH (06:36)
[2018-08-12 08:08] VITALS: BP 116/73
[2018-08-12] MEDS: FAMOTIDINE 20MG/2ML VIAL IV SCH (09:23)
[2018-08-12] MEDS: HYDROCORTISONE SOD SUCCINATE 100 MG/2 ML VIAL IV SCH (09:24)
[2018-08-12] MEDS: MEROPENEM 1,000 MG in SODIUM CHLORIDE 0.9% 100 ML IV SCH ×2 (09:24→21:26)
[2018-08-12] MEDS: NYSTATIN POWDER 15GM TOP SCH ×2 (09:32→17:37)
[2018-08-12 11:56] VITALS: BP 136/76
[2018-08-12 14:00] LABS: BASOPHILS % 0.8 % (0.0-2.0); HEMATOCRIT. 30.1 % (36.0-48.0); HEMOGLOBIN. 9.8 g/dL (12.0-16.0); LYMPHOCYTES % 9.4 % (20.0-50.0); MEAN CORPUSCULAR VOLUME 98.8 fL (81.0-99.0); MEAN PLATELET VOLUME 10.9 fl (7.4-10.4); MONOCYTES % 6.2 % (2.0-8.0); NEUTROPHILS % 81.6 % (40.0-76.0); PLATELET 106 x1000/uL (130-400); RED BLOOD CELL COUNT 3.05 mill/uL (4.2-5.4); RED CELL DISTRIBUTION WIDTH 20.3 % (11.6-14.6)
[2018-08-12 16:04] VITALS: BP 125/72
[2018-08-12] MEDS: MICAFUNGIN 100 MG in SODIUM CHLORIDE 0.9% 100 ML IV SCH (17:36)
[2018-08-12] MEDS: TOTAL PARENTERAL NUTRITION 1,500 ML IV SCH (19:05)
[2018-08-12 20:17] VITALS: BP 158/81
[2018-08-12] MEDS ORDERED: MEROPENEM 1,000 MG in SODIUM CHLORIDE 0.9% 100 ML IV SCH (21:00)
[2018-08-12] MEDS: FAT EMULSIONS 500 ML IV SCH (21:27)
[2018-08-12] MEDS: DEXTROSE 50% WATER 50ML SYRINGE IV PRN (23:42)
[2018-08-13 00:32] VITALS: BP 142/78
[2018-08-13] MEDS: IPRATROPIUM/ALBUTEROL 0.5-3(2.5)MG/3ML NEB HHN SCH ×4 (02:12→21:49)
[2018-08-13 04:43] VITALS: BP 111/72
[2018-08-13] MEDS: BLOOD SUGAR DIAGNOSTIC STRIP TEST SCH ×3 (05:22→17:48)
[2018-08-13] MEDS: INSULIN LISPRO 100 UNITS/ML SUBCUT SCH ×3 (05:23→17:48)
[2018-08-13] MEDS: DEXTROSE 50% WATER 50ML SYRINGE IV PRN (05:26)
[2018-08-13 07:40] LABS: HEMATOCRIT 32.7 % (36.0-48.0); HEMOGLOBIN 10.1 g/dL (12.0-16.0); MEAN CORPUSCULAR HEMOGLOBIN 31.2 pg (28.0-32.0); MEAN CORPUSCULAR VOLUME 100.5 fL (81.0-99.0); PLATELET 92 x1000/uL (130-400); RED BLOOD CELL COUNT 3.25 mill/uL (4.2-5.4); RED CELL DISTRIBUTION WIDTH 20.2 % (11.6-14.6)
[2018-08-13 08:00] VITALS: BP 130/74
[2018-08-13 08:06] LABS: CHLORIDE 123 mEq/L (98-107)
[2018-08-13] MEDS ORDERED: SODIUM BICARBONATE 4% (2.4MEQ) 5ML VIAL IV ONE (08:57)
[2018-08-13] MEDS ORDERED: LIDOCAINE HCL 1% 20ML VIAL (Pyxis) INJ ONE (08:58)
[2018-08-13] MEDS: NYSTATIN POWDER 15GM TOP SCH ×2 (10:39→17:44)
[2018-08-13] MEDS: MEROPENEM 1,000 MG in SODIUM CHLORIDE 0.9% 100 ML IV SCH ×2 (10:39→21:20)
[2018-08-13] MEDS: FAMOTIDINE 20MG/2ML VIAL IV SCH (10:39)
[2018-08-13 11:58] VITALS: BP 175/82
[2018-08-13] MEDS: HYDRALAZINE 20MG/ML VIAL IV PRN (13:00)
[2018-08-13] MEDS: MICAFUNGIN 100 MG in SODIUM CHLORIDE 0.9% 100 ML IV SCH (13:00)
[2018-08-13 16:04] VITALS: BP 108/61
[2018-08-13] MEDS: TOTAL PARENTERAL NUTRITION 1,500 ML IV SCH ×2 (17:44→21:00)
[2018-08-13 20:00] VITALS: BP 113/86
[2018-08-14] VITALS (7 sets, daily range): BP systolic 108–172; BP diastolic 71–89
[2018-08-14] MEDS: BLOOD SUGAR DIAGNOSTIC STRIP TEST SCH ×4 (00:53→17:57)
[2018-08-14] MEDS: IPRATROPIUM/ALBUTEROL 0.5-3(2.5)MG/3ML NEB HHN SCH ×4 (01:47→20:47)
[2018-08-14] MEDS: INSULIN LISPRO 100 UNITS/ML SUBCUT SCH ×4 (05:53→17:57)
[2018-08-14] MEDS: TOTAL PARENTERAL NUTRITION 1,500 ML IV SCH (06:08)
[2018-08-14] MEDS: FAMOTIDINE 20MG/2ML VIAL IV SCH (08:58)
[2018-08-14] MEDS: MEROPENEM 1,000 MG in SODIUM CHLORIDE 0.9% 100 ML IV SCH ×2 (08:58→21:44)
[2018-08-14] MEDS: NYSTATIN POWDER 15GM TOP SCH ×2 (08:58→17:57)
[2018-08-14 10:45] LABS: HEMATOCRIT 31.6 % (36.0-48.0); HEMOGLOBIN 9.9 g/dL (12.0-16.0); MEAN CORPUSCULAR HEMOGLOBIN 31.1 pg (28.0-32.0); MEAN CORPUSCULAR VOLUME 99.5 fL (81.0-99.0); PLATELET 89 x1000/uL (130-400); RED BLOOD CELL COUNT 3.18 mill/uL (4.2-5.4); RED CELL DISTRIBUTION WIDTH 19.7 % (11.6-14.6)
[2018-08-14 11:04] LABS: CHLORIDE 126 mEq/L (98-107)
[2018-08-14] MEDS: HYDRALAZINE 20MG/ML VIAL IV PRN (13:19)
[2018-08-14] MEDS: MICAFUNGIN 100 MG in SODIUM CHLORIDE 0.9% 100 ML IV SCH (13:25)
[2018-08-14] MEDS ORDERED: TOTAL PARENTERAL NUTRITION 1,500 ML IV SCH (21:00)
[2018-08-14] MEDS: FAT EMULSIONS 500 ML IV SCH (21:45)
[2018-08-15] VITALS: BP 122/75
[2018-08-15] MEDS: BLOOD SUGAR DIAGNOSTIC STRIP TEST SCH ×3 (00:23→12:00)
[2018-08-15] MEDS: IPRATROPIUM/ALBUTEROL 0.5-3(2.5)MG/3ML NEB HHN SCH ×4 (00:51→20:33)
[2018-08-15 04:00] VITALS: BP 114/87
[2018-08-15] MEDS: INSULIN LISPRO 100 UNITS/ML SUBCUT SCH ×3 (06:00→12:00)
[2018-08-15 07:29] LABS: HEMATOCRIT 30.1 % (36.0-48.0); HEMOGLOBIN 11.1 g/dL (12.0-16.0); MEAN CORPUSCULAR HEMOGLOBIN 36.5 pg (28.0-32.0); MEAN CORPUSCULAR VOLUME 98.7 fL (81.0-99.0); PLATELET 107 x1000/uL (130-400); RED BLOOD CELL COUNT 3.05 mill/uL (4.2-5.4); RED CELL DISTRIBUTION WIDTH 19.3 % (11.6-14.6)
[2018-08-15 07:36] LABS: CHLORIDE 122 mEq/L (98-107)
[2018-08-15 08:00] VITALS: BP 106/71
[2018-08-15] MEDS: FAMOTIDINE 20MG/2ML VIAL IV SCH (09:00)
[2018-08-15] MEDS: MEROPENEM 1,000 MG in SODIUM CHLORIDE 0.9% 100 ML IV SCH ×2 (09:00→21:05)
[2018-08-15] MEDS: NYSTATIN POWDER 15GM TOP SCH ×2 (09:00→17:42)
[2018-08-15 12:09] VITALS: BP 115/74
[2018-08-15] MEDS ORDERED: LIDOCAINE HCL/EPINEPHRINE 1%-EPI 1:100,000 20 ML VIAL INFIL NR (13:00)
[2018-08-15] MEDS: MICAFUNGIN 100 MG in SODIUM CHLORIDE 0.9% 100 ML IV SCH (15:05)
[2018-08-15 15:29] VITALS: BP 119/71
[2018-08-15] MEDS: SODIUM HYPOCHLORITE 0.125% 473ML SOLUTION TOP SCH (17:49)
[2018-08-15 20:00] VITALS: BP 124/78
[2018-08-15] MEDS ORDERED: TOTAL PARENTERAL NUTRITION 1,500 ML IV SCH (21:00)
[2018-08-16] VITALS: BP 141/80
[2018-08-16] MEDS: IPRATROPIUM/ALBUTEROL 0.5-3(2.5)MG/3ML NEB HHN SCH ×4 (01:50→21:10)
[2018-08-16 04:00] VITALS: BP 120/74
[2018-08-16] MEDS: BLOOD SUGAR DIAGNOSTIC STRIP TEST SCH ×4 (05:45→18:23)
[2018-08-16] MEDS: INSULIN LISPRO 100 UNITS/ML SUBCUT SCH ×3 (05:46→18:00)
[2018-08-16 06:22] LABS: HEMATOCRIT 25.2 % (36.0-48.0); HEMOGLOBIN 8.1 g/dL (12.0-16.0); MEAN CORPUSCULAR HEMOGLOBIN 31.9 pg (28.0-32.0); PLATELET 91 x1000/uL (130-400); RED BLOOD CELL COUNT 2.54 mill/uL (4.2-5.4); RED CELL DISTRIBUTION WIDTH 19.8 % (11.6-14.6)
[2018-08-16 06:40] LABS: CHLORIDE 126 mEq/L (98-107)
[2018-08-16 08:00] VITALS: BP 153/80
[2018-08-16 12:00] VITALS: BP 134/68
[2018-08-16] MEDS: MEROPENEM 1,000 MG in SODIUM CHLORIDE 0.9% 100 ML IV SCH ×2 (12:14→23:19)
[2018-08-16] MEDS: SODIUM HYPOCHLORITE 0.125% 473ML SOLUTION TOP SCH (12:15)
[2018-08-16] MEDS: NYSTATIN POWDER 15GM TOP SCH ×2 (12:26→18:23)
[2018-08-16] MEDS: FAMOTIDINE 20MG/2ML VIAL IV SCH (12:26)
[2018-08-16] MEDS: MICAFUNGIN 100 MG in SODIUM CHLORIDE 0.9% 100 ML IV SCH (15:14)
[2018-08-16 16:00] VITALS: BP 129/72
[2018-08-16 20:00] VITALS: BP 151/90
[2018-08-16] MEDS ORDERED: TOTAL PARENTERAL NUTRITION 1,500 ML IV SCH (21:00)
[2018-08-17 00:02] VITALS: BP 142/79
== END 2018-08-17 01:00 | DRG 853 ==
LOC: ER 12:33 → MICUSO 22:00 → EDBEDREQ 22:31 → EDBEDREQTM 22:31 → EDBEDREQSVC 23:03 → EDBEDREQTM 23:03 → ENRESERV 23:39 → 5EST 07-26 09:15 → MICUNO 07-29 15:45 → MICUSO 08-07 08:15 → 6WST 08-11 10:12
PROVIDERS: ADMIT Internal Medicine; ATTEND Internal Medicine
PROC: 30233K1 Transfusion of Nonautologous Frozen Plasma into Peripheral Vein, Percutaneous Approach (ICD-10-PCS; 2018-07-23)
PROC: 30233N1 Transfusion of Nonautologous Red Blood Cells into Peripheral Vein, Percutaneous Approach (ICD-10-PCS; 2018-07-23)
PROC: 5A1935Z Respiratory Ventilation, Less than 24 Consecutive Hours (ICD-10-PCS; 2018-07-23)
PROC: 0DQE0ZZ Repair Large Intestine, Open Approach (ICD-10-PCS; principal; 2018-07-25)
PROC: 0FT40ZZ Resection of Gallbladder, Open Approach (ICD-10-PCS; 2018-07-25)
PROC: 30233R1 Transfusion of Nonautologous Platelets into Peripheral Vein, Percutaneous Approach (ICD-10-PCS; 2018-07-25)
PROC: 06H03DZ Insertion of Intraluminal Device into Inferior Vena Cava, Percutaneous Approach (ICD-10-PCS; 2018-07-26)
PROC: 5A1955Z Respiratory Ventilation, Greater than 96 Consecutive Hours (ICD-10-PCS; 2018-07-29)
PROC: 0BH17EZ Insertion of Endotracheal Airway into Trachea, Via Natural or Artificial Opening (ICD-10-PCS; 2018-07-29)
PROC: 5A09357 Assistance with Respiratory Ventilation, Less than 24 Consecutive Hours, Continuous Positive Airway Pressure (ICD-10-PCS; 2018-07-29)
PROC: 02HV33Z Insertion of Infusion Device into Superior Vena Cava, Percutaneous Approach (ICD-10-PCS; 2018-08-13)
PROC: B5181ZA Fluoroscopy of Superior Vena Cava using Low Osmolar Contrast, Guidance (ICD-10-PCS; 2018-08-13)
PROC: B548ZZA Ultrasonography of Superior Vena Cava, Guidance (ICD-10-PCS; 2018-08-13)
PROC: 0JB70ZZ Excision of Back Subcutaneous Tissue and Fascia, Open Approach (ICD-10-PCS; 2018-08-15)
DX: A41.9 Sepsis, unspecified organism (principal); L89.153 Pressure ulcer of sacral region, stage 3; L89.323 Pressure ulcer of left buttock, stage 3; R65.21 Severe sepsis with septic shock; J18.9 Pneumonia, unspecified organism; G93.41 Metabolic encephalopathy; I50.33 Acute on chronic diastolic (congestive) heart failure; K65.9 Peritonitis, unspecified; D65 Disseminated intravascular coagulation [defibrination syndrome]; J96.90 Respiratory failure, unspecified, unspecified whether with hypoxia or hypercapnia; K63.2 Fistula of intestine; K81.0 Acute cholecystitis; N17.9 Acute kidney failure, unspecified; E87.3 Alkalosis; D68.59 Other primary thrombophilia; E46 Unspecified protein-calorie malnutrition; I82.432 Acute embolism and thrombosis of left popliteal vein; E72.20 Disorder of urea cycle metabolism, unspecified; E87.0 Hyperosmolality and hypernatremia; E87.1 Hypo-osmolality and hyponatremia; I13.0 Hypertensive heart and chronic kidney disease with heart failure and stage 1 through stage 4 chronic kidney disease, or unspecified chronic kidney disease; K66.8 Other specified disorders of peritoneum; E87.6 Hypokalemia; D64.9 Anemia, unspecified; R60.1 Generalized edema; B96.89 Other specified bacterial agents as the cause of diseases classified elsewhere; E16.2 Hypoglycemia, unspecified; E83.39 Other disorders of phosphorus metabolism; E83.42 Hypomagnesemia; E83.51 Hypocalcemia; E86.1 Hypovolemia; E87.5 Hyperkalemia; H70.92 Unspecified mastoiditis, left ear; K59.00 Constipation, unspecified; N18.9 Chronic kidney disease, unspecified; R62.7 Adult failure to thrive; Z78.1 Physical restraint status; Z86.711 Personal history of pulmonary embolism; Z98.84 Bariatric surgery status; M19.90 Unspecified osteoarthritis, unspecified site; S61.512A Laceration without foreign body of left wrist, initial encounter; S51.012A Laceration without foreign body of left elbow, initial encounter; X58.XXXA Exposure to other specified factors, initial encounter; Y93.89 Activity, other specified; Y92.89 Other specified places as the place of occurrence of the external cause; Y99.8 Other external cause status; R68.0 Hypothermia, not associated with low environmental temperature; Z66 Do not resuscitate; Z68.29 Body mass index [BMI] 29.0-29.9, adult; T42.75XA Adverse effect of unspecified antiepileptic and sedative-hypnotic drugs, initial encounter
CPT/HCPCS: 31500; 36415; 36430; 36569; 36600; 37191; 71045; 74018; 74176; 76770; 76937; 77001; 80048; 80202; 82140; 82375; 82465; 82805; 82947; 82962; 83010; 83036; 83605; 83615; 83735; 84100; 84132; 84134; 84478; 85014; 85018; 85027; 86022; 86850; 86870; 86900; 86920; 86927; 87070; 87077; 87106; 88304; 92610; 93005; 93306; 93922; 93970; 94002; 94003; 94640; 94660; 96365; 96366; 96368; 96375; 97162; 97530; 99291; A6261; C1725; C1769; C1880; J0330; J0360; J0690; J1450; J1580; J1644; J1720; J1815; J1940; J1956; J2185; J2248; J2250; J2270; J2370; J2405; J2543; J2704; J2710; J2765; J3010; J3370; J3475; J3480; J3490; J7030; J7040; J7050; J7060; J7620; L3908; P9016; P9017; P9034; P9041; P9047; Q9967

== ENCOUNTER 2019-08-05 11:44 | Inpatient (IN) | payer OTHER, MEDICAID ==
[~2019-08-05] VITALS: Ht 149.9 cm; Wt 53.5 kg
[2019-08-05] MEDS ORDERED: SODIUM CHLORIDE 0.9% 1,000 ML IV ONE ×3 (13:26→15:14)
[2019-08-05] MEDS ORDERED: MORPHINE SULFATE 4 MG/ML CPJ (NOT FOR IM USE) IV STA (13:26)
[2019-08-05] MEDS ORDERED: ONDANSETRON HCL 4MG/2ML INJ IV STA (13:26)
[2019-08-05] MEDS ORDERED: PIPERACILLIN/TAZ 3.375G PREMIX 50 ML IV ONE (13:30)
[2019-08-05] MEDS ORDERED: VANCOMYCIN 1 G PREMIX 200 ML IV SCH (13:30)
[2019-08-05 14:11] LABS: BASOPHILS % 0.6 % (0.0-2.0); HEMATOCRIT. 28.6 % (36.0-48.0); HEMOGLOBIN. 9.8 g/dL (12.0-16.0); LYMPHOCYTES % 9.3 % (20.0-50.0); MEAN CORPUSCULAR HEMOGLOBIN 31.2 pg (28.0-32.0); MEAN CORPUSCULAR VOLUME 91.2 fL (81.0-99.0); MONOCYTES % 7.9 % (2.0-8.0); NEUTROPHILS % 82.2 % (40.0-76.0); PLATELET 395 x1000/uL (130-400); RED BLOOD CELL COUNT 3.13 mill/uL (4.2-5.4); RED CELL DISTRIBUTION WIDTH 12.9 % (11.6-14.6)
[2019-08-05 14:17] LABS: CHLORIDE 102 mEq/L (98-107)
[2019-08-05 14:21] LABS: INR 1.4; PARTIAL THROMBOPLASTIN TIME 26.6 sec (23.4-31.0); PROTHROMBIN TIME 14.8 sec (9.6-11.0)
[2019-08-05 16:08] LABS: CLARITY URINE CLOUDY (CLEAR); COLOR URINE DARK YELLOW (YELLOW); KETONES URINE NEGATIVE (NEGATIVE); LEUKOCYTE ESTERASE URINE 2+ (NEGATIVE); NITRITE URINE NEGATIVE (NEGATIVE); OCCULT BLOOD URINE TRACE (NEGATIVE); PH URINE 5.5 (4.5-8.0); PROTEIN URINE NEGATIVE (NEGATIVE); SPECIFIC GRAVITY URINE 1.017 (1.005-1.030)
[2019-08-05] MEDS ORDERED: IOHEXOL-300 100 ML BOTTLE ONE (18:41)
[2019-08-06] MEDS ORDERED: DOCUSATE SODIUM 100MG CAPSULE PO PRN (00:15)
[2019-08-06] MEDS ORDERED: ONDANSETRON HCL 4MG/2ML INJ IV PRN (00:15)
[2019-08-06 06:51] LABS: BASOPHILS % 0.2 % (0.0-2.0); HEMATOCRIT. 29.1 % (36.0-48.0); HEMOGLOBIN. 9.9 g/dL (12.0-16.0); LYMPHOCYTES % 9.1 % (20.0-50.0); MEAN CORPUSCULAR VOLUME 91.4 fL (81.0-99.0); MEAN PLATELET VOLUME 7.5 fl (7.4-10.4); MONOCYTES % 8.3 % (2.0-8.0); NEUTROPHILS % 82.4 % (40.0-76.0); PLATELET 372 x1000/uL (130-400); RED BLOOD CELL COUNT 3.18 mill/uL (4.2-5.4)
[2019-08-06 06:57] LABS: CHLORIDE 102 mEq/L (98-107)
[2019-08-06 07:06] LABS: LDL CHOLESTEROL 40 mg/dL (5-100)
[2019-08-06 07:07] LABS: CREATINE KINASE 211 IU/L (26-192); CREATINE KINASE MB FRACTION 7.4 ng/mL (0.5-3.6)
[2019-08-06 07:08] LABS: HDL CHOLESTEROL 31 mg/dL (40-59); T4 FREE 0.42 ng/dL (0.76-1.46)
[2019-08-06] MEDS ORDERED: PIPERACILLIN/TAZOBACTAM 2.25 G in DEXTROSE 5% WATER 50 ML IV NR (09:00)
[2019-08-06] MEDS: ASPIRIN 81MG EC TABLET PO SCH (10:05)
[2019-08-06] MEDS: ENOXAPARIN 30MG/0.3ML SYR SUBCUT SCH (10:06)
[2019-08-06] MEDS: DEXT 5%/0.45% NACL 1000ML 1,000 ML IV SCH ×2 (10:11→17:13)
[2019-08-06] MEDS: PIPERACILLIN/TAZOBACTAM 2.25 G in DEXTROSE 5% WATER 50 ML IV SCH ×2 (10:14→18:10)
[2019-08-06 11:00] VITALS: BP 106/65
[2019-08-06 12:00] VITALS: BP 92/62
[2019-08-06 16:00] VITALS: BP 96/64
[2019-08-06] MEDS ORDERED: PIPERACILLIN/TAZ 3.375G PREMIX 50 ML IV SCH (16:00)
[2019-08-06] MEDS: VANCOMYCIN 500 MG PREMIX 100 ML IV SCH (17:12)
[2019-08-06] MEDS: LEVOTHYROXINE SODIUM 50MCG TABLET PO SCH (17:12)
[2019-08-06 20:00] VITALS: BP 141/98
[2019-08-06] MEDS: FAMOTIDINE 20MG TABLET PO SCH (20:35)
[2019-08-06 21:06] LABS: CREATINE KINASE 323 IU/L (26-192)
[2019-08-06 21:07] LABS: CREATINE KINASE MB FRACTION 7.5 ng/mL (0.5-3.6)
[2019-08-07] VITALS: BP 111/59
[2019-08-07] MEDS: PIPERACILLIN/TAZOBACTAM 2.25 G in DEXTROSE 5% WATER 50 ML IV SCH ×3 (02:00→19:18)
[2019-08-07 04:00] VITALS: BP 105/66
[2019-08-07] MEDS: DEXT 5%/0.45% NACL 1000ML 1,000 ML IV SCH ×2 (04:23→16:01)
[2019-08-07] MEDS: LEVOTHYROXINE SODIUM 50MCG TABLET PO SCH (06:22)
[2019-08-07] MEDS: ENOXAPARIN 30MG/0.3ML SYR SUBCUT SCH (10:54)
[2019-08-07] MEDS: HYDROCODONE/ACETAMINOPHEN 5/325MG TABLET PO PRN (10:55)
[2019-08-07] MEDS: ASPIRIN 81MG EC TABLET PO SCH (10:57)
[2019-08-07 12:00] VITALS: BP 97/62
[2019-08-07 13:21] LABS: BASOPHILS % 0.2 % (0.0-2.0); HEMATOCRIT. 28.1 % (36.0-48.0); HEMOGLOBIN. 9.7 g/dL (12.0-16.0); LYMPHOCYTES % 13.7 % (20.0-50.0); MEAN CORPUSCULAR HEMOGLOBIN 31.8 pg (28.0-32.0); MEAN CORPUSCULAR VOLUME 92.1 fL (81.0-99.0); MEAN PLATELET VOLUME 7.5 fl (7.4-10.4); MONOCYTES % 10.7 % (2.0-8.0); NEUTROPHILS % 75.4 % (40.0-76.0); PLATELET 403 x1000/uL (130-400); RED BLOOD CELL COUNT 3.05 mill/uL (4.2-5.4); RED CELL DISTRIBUTION WIDTH 13.1 % (11.6-14.6)
[2019-08-07 15:46] VITALS: BP 102/62
[2019-08-07] MEDS: VANCOMYCIN 500 MG PREMIX 100 ML IV SCH (16:00)
[2019-08-07] MEDS ORDERED: IPRATROPIUM/ALBUTEROL 0.5-3(2.5)MG/3ML NEB HHN PRN (17:30)
[2019-08-07] MEDS ORDERED: HYDRALAZINE 20MG/ML VIAL IV PRN (17:30)
[2019-08-07] MEDS: SODIUM CHLORIDE 0.9% 1,000 ML IV SCH (19:18)
[2019-08-07 20:00] VITALS: BP 97/50
[2019-08-07] MEDS ORDERED: LACTULOSE 20G/30ML UDC PO PRN (21:00)
[2019-08-07] MEDS: FAMOTIDINE 20MG TABLET PO SCH (21:49)
[2019-08-08] VITALS: BP 111/73
[2019-08-08] MEDS: PIPERACILLIN/TAZOBACTAM 2.25 G in DEXTROSE 5% WATER 50 ML IV SCH ×3 (02:00→18:33)
[2019-08-08] MEDS: SODIUM CHLORIDE 0.9% 1,000 ML IV SCH ×3 (03:30→23:30)
[2019-08-08 04:00] VITALS: BP 96/61
[2019-08-08] MEDS: LEVOTHYROXINE SODIUM 50MCG TABLET PO SCH (06:07)
[2019-08-08 08:00] VITALS: BP 93/62
[2019-08-08] MEDS: ENOXAPARIN 30MG/0.3ML SYR SUBCUT SCH (09:18)
[2019-08-08] MEDS: ASPIRIN 81MG EC TABLET PO SCH (09:18)
[2019-08-08 12:00] VITALS: BP 100/71
[2019-08-08] MEDS ORDERED: SODIUM BICARBONATE 4% (2.4MEQ) 5ML VIAL IV ONE (13:02)
[2019-08-08] MEDS ORDERED: LIDOCAINE HCL 1% 20ML VIAL (Pyxis) INJ ONE (13:03)
[2019-08-08] MEDS: HYDROCODONE/ACETAMINOPHEN 5/325MG TABLET PO PRN (14:55)
[2019-08-08] MEDS: LACTULOSE 20G/30ML UDC PO SCH ×2 (14:55→22:06)
[2019-08-08 16:23] VITALS: BP 108/45
[2019-08-08 17:21] LABS: BASOPHILS % 0.2 % (0.0-2.0); HEMATOCRIT. 29.1 % (36.0-48.0); LYMPHOCYTES % 19.8 % (20.0-50.0); MEAN CORPUSCULAR HEMOGLOBIN 31.7 pg (28.0-32.0); MEAN CORPUSCULAR VOLUME 91.8 fL (81.0-99.0); MEAN PLATELET VOLUME 7.7 fl (7.4-10.4); MONOCYTES % 9.2 % (2.0-8.0); NEUTROPHILS % 70.8 % (40.0-76.0); PLATELET 462 x1000/uL (130-400); RED BLOOD CELL COUNT 3.17 mill/uL (4.2-5.4); RED CELL DISTRIBUTION WIDTH 13.1 % (11.6-14.6)
[2019-08-08] MEDS: VANCOMYCIN 500 MG PREMIX 100 ML IV SCH (17:24)
[2019-08-08 20:00] VITALS: BP 107/53
[2019-08-08] MEDS: FAMOTIDINE 20MG TABLET PO SCH (22:06)
[2019-08-09] VITALS: BP 106/49
[2019-08-09] MEDS: PIPERACILLIN/TAZOBACTAM 2.25 G in DEXTROSE 5% WATER 50 ML IV SCH ×2 (01:48→10:13)
[2019-08-09 04:00] VITALS: BP 95/60
[2019-08-09] MEDS: SODIUM CHLORIDE 0.9% 1,000 ML IV SCH ×3 (04:07→21:10)
[2019-08-09] MEDS: LEVOTHYROXINE SODIUM 50MCG TABLET PO SCH (05:22)
[2019-08-09] MEDS: LACTULOSE 20G/30ML UDC PO SCH ×2 (05:22→13:12)
[2019-08-09] MEDS: HYDROCODONE/ACETAMINOPHEN 5/325MG TABLET PO PRN (06:16)
[2019-08-09 07:43] LABS: BASOPHILS % 0.2 % (0.0-2.0); HEMATOCRIT. 24.4 % (36.0-48.0); HEMOGLOBIN. 8.5 g/dL (12.0-16.0); LYMPHOCYTES % 12.3 % (20.0-50.0); MEAN CORPUSCULAR HEMOGLOBIN 31.6 pg (28.0-32.0); MEAN CORPUSCULAR VOLUME 90.4 fL (81.0-99.0); MEAN PLATELET VOLUME 7.6 fl (7.4-10.4); MONOCYTES % 8.2 % (2.0-8.0); NEUTROPHILS % 79.3 % (40.0-76.0); PLATELET 426 x1000/uL (130-400); RED CELL DISTRIBUTION WIDTH 12.9 % (11.6-14.6)
[2019-08-09 08:00] VITALS: BP 94/57
[2019-08-09] MEDS: ENOXAPARIN 30MG/0.3ML SYR SUBCUT SCH (10:13)
[2019-08-09] MEDS: ASPIRIN 81MG EC TABLET PO SCH (10:13)
[2019-08-09] MEDS ORDERED: POTASSIUM CHLORIDE 20MEQ TABLET SR PO NR ×2 (11:45→18:00)
[2019-08-09 12:23] VITALS: BP 90/63
[2019-08-09 16:27] VITALS: BP 90/60
[2019-08-09] MEDS ORDERED: VANCOMYCIN 750 MG PREMIX 150 ML IV SCH (18:00)
[2019-08-09] MEDS: CEPHALEXIN 250MG CAPSULE PO SCH (18:10)
[2019-08-09 20:00] VITALS: BP 90/55
[2019-08-09] MEDS: METRONIDAZOLE 500MG TABLET PO SCH (21:10)
[2019-08-09] MEDS: FAMOTIDINE 20MG TABLET PO SCH (21:10)
[2019-08-10] VITALS: BP 83/50
[2019-08-10 01:17] LABS: BASOPHILS % 0.2 % (0.0-2.0); HEMATOCRIT. 23.5 % (36.0-48.0); LYMPHOCYTES % 16.7 % (20.0-50.0); MEAN CORPUSCULAR HEMOGLOBIN 31.3 pg (28.0-32.0); MEAN CORPUSCULAR VOLUME 91.5 fL (81.0-99.0); MEAN PLATELET VOLUME 7.5 fl (7.4-10.4); MONOCYTES % 6.9 % (2.0-8.0); NEUTROPHILS % 76.2 % (40.0-76.0); PLATELET 372 x1000/uL (130-400); RED BLOOD CELL COUNT 2.57 mill/uL (4.2-5.4)
[2019-08-10 04:00] VITALS: BP 99/59
[2019-08-10] MEDS: SODIUM CHLORIDE 0.9% 1,000 ML IV SCH ×2 (07:27→15:30)
[2019-08-10] MEDS: LEVOTHYROXINE SODIUM 50MCG TABLET PO SCH (07:28)
[2019-08-10] MEDS: METRONIDAZOLE 500MG TABLET PO SCH ×3 (07:28→21:49)
[2019-08-10 08:00] VITALS: BP 101/67
[2019-08-10] MEDS: ENOXAPARIN 30MG/0.3ML SYR SUBCUT SCH (09:00)
[2019-08-10] MEDS: ASPIRIN 81MG EC TABLET PO SCH (09:14)
[2019-08-10] MEDS: CEPHALEXIN 250MG CAPSULE PO SCH ×2 (09:14→17:26)
[2019-08-10 12:00] VITALS: BP 143/83
[2019-08-10 16:00] VITALS: BP 145/79
[2019-08-10] MEDS ORDERED: PHYTONADIONE 10MG/ML AMP SUBCUT NR (16:30)
[2019-08-10] MEDS: HYDROCODONE/ACETAMINOPHEN 5/325MG TABLET PO PRN (17:34)
[2019-08-10 20:00] VITALS: BP 93/53
[2019-08-10] MEDS: FAMOTIDINE 20MG TABLET PO SCH (21:49)
[2019-08-11] VITALS: BP 97/53
[2019-08-11 04:00] VITALS: BP 94/55
[2019-08-11] MEDS: SODIUM CHLORIDE 0.9% 1,000 ML IV SCH ×2 (04:11→13:06)
[2019-08-11] MEDS: METRONIDAZOLE 500MG TABLET PO SCH ×3 (05:55→23:39)
[2019-08-11] MEDS: LEVOTHYROXINE SODIUM 50MCG TABLET PO SCH (05:55)
[2019-08-11 06:17] LABS: BASOPHILS % 0.4 % (0.0-2.0); EOSINOPHILS % 0.1 % (0.0-5.0); HEMATOCRIT. 21.9 % (36.0-48.0); HEMOGLOBIN. 7.5 g/dL (12.0-16.0); LYMPHOCYTES % 21.7 % (20.0-50.0); MEAN CORPUSCULAR HEMOGLOBIN 31.6 pg (28.0-32.0); MEAN CORPUSCULAR VOLUME 92.1 fL (81.0-99.0); MEAN PLATELET VOLUME 7.5 fl (7.4-10.4); MONOCYTES % 7.2 % (2.0-8.0); NEUTROPHILS % 70.6 % (40.0-76.0); PLATELET 366 x1000/uL (130-400); RED BLOOD CELL COUNT 2.38 mill/uL (4.2-5.4); RED CELL DISTRIBUTION WIDTH 13.3 % (11.6-14.6)
[2019-08-11 06:21] LABS: INR 1.4; PARTIAL THROMBOPLASTIN TIME 31.5 sec (23.4-31.0); PROTHROMBIN TIME 14.8 sec (9.6-11.0)
[2019-08-11] MEDS: CEPHALEXIN 250MG CAPSULE PO SCH ×2 (09:00→17:33)
[2019-08-11] MEDS: ASPIRIN 81MG EC TABLET PO SCH (09:00)
[2019-08-11] MEDS: PANTOPRAZOLE SODIUM 40 MG/VIAL IV SCH ×2 (09:09→17:41)
[2019-08-11] MEDS ORDERED: SIMETHICONE 40 MG/0.6 ML 30ML ONE (15:51)
[2019-08-11] MEDS ORDERED: MIDAZOLAM HCL 5 MG/5 ML VIAL ONE (16:31)
[2019-08-11] MEDS ORDERED: FENTANYL CITRATE/PF 50MCG/ML 2ML VIAL ONE (16:31)
[2019-08-11] MEDS ORDERED: MIDAZOLAM HCL 5 MG/5 ML VIAL IV PRN (16:31)
[2019-08-11 20:00] VITALS: BP 115/80
[2019-08-12] VITALS (11 sets, daily range): BP systolic 97–144; BP diastolic 56–93
[2019-08-12] MEDS: METRONIDAZOLE 500MG TABLET PO SCH ×3 (06:44→21:27)
[2019-08-12] MEDS: LEVOTHYROXINE SODIUM 50MCG TABLET PO SCH (06:44)
[2019-08-12] MEDS: SODIUM CHLORIDE 0.9% 1,000 ML IV SCH ×3 (06:45→17:00)
[2019-08-12 06:50] LABS: HEMATOCRIT. 21.7 % (36.0-48.0); HEMOGLOBIN. 7.4 g/dL (12.0-16.0); MEAN CORPUSCULAR HEMOGLOBIN 31.7 pg (28.0-32.0); MEAN CORPUSCULAR VOLUME 92.3 fL (81.0-99.0); MEAN PLATELET VOLUME 7.5 fl (7.4-10.4); PLATELET 355 x1000/uL (130-400); RED BLOOD CELL COUNT 2.35 mill/uL (4.2-5.4); RED CELL DISTRIBUTION WIDTH 13.4 % (11.6-14.6)
[2019-08-12] MEDS: CEPHALEXIN 250MG CAPSULE PO SCH ×2 (08:12→16:59)
[2019-08-12] MEDS: ASPIRIN 81MG EC TABLET PO SCH (08:12)
[2019-08-12] MEDS: PANTOPRAZOLE SODIUM 40 MG/VIAL IV SCH (08:12)
[2019-08-12 11:42] LABS: HEMATOCRIT. 22.6 % (36.0-48.0); HEMOGLOBIN. 7.8 g/dL (12.0-16.0); MEAN CORPUSCULAR HEMOGLOBIN 31.9 pg (28.0-32.0); MEAN CORPUSCULAR VOLUME 92.5 fL (81.0-99.0); MEAN PLATELET VOLUME 7.9 fl (7.4-10.4); PLATELET 381 x1000/uL (130-400); RED BLOOD CELL COUNT 2.44 mill/uL (4.2-5.4); RED CELL DISTRIBUTION WIDTH 13.3 % (11.6-14.6)
[2019-08-12] MEDS ORDERED: LACTULOSE 20G/30ML UDC PO NR (12:15)
[2019-08-12] MEDS ORDERED: LORAZEPAM 2MG/ML CPJ IV PRN (14:45)
[2019-08-12] MEDS ORDERED: MORPHINE SULFATE 2 MG/ML CPJ (NOT FOR IM USE) IV PRN (14:45)
[2019-08-12] MEDS ORDERED: DOCUSATE SODIUM 100MG CAPSULE PO SCH (15:00)
[2019-08-12 16:00] LABS: HEMATOCRIT 22.8 % (36.0-48.0); HEMOGLOBIN 7.8 g/dL (12.0-16.0)
[2019-08-12] MEDS ORDERED: FERROUS SULFATE 325MG TABLET PO SCH (17:15)
[2019-08-12 17:39] LABS: PLATELET ESTIMATE NORMAL
[2019-08-12 19:07] LABS: PLATELET ESTIMATE NORMAL
[2019-08-12] MEDS ORDERED: PANTOPRAZOLE 40MG DR TABLET PO SCH (21:00)
[2019-08-13] MEDS ORDERED: CYANOCOBALAMIN 100MCG TABLET PO SCH (07:15)
[2019-08-13] MEDS ORDERED: FOLIC ACID 1MG TABLET PO SCH (09:00)
== END 2019-08-12 22:48 | DRG 871 ==
LOC: ER 11:44 → 5WST 18:27 → EDBEDREQTM 18:30 → EDBEDREQ 18:30 → ENRESERV 08-06 08:06
PROVIDERS: ADMIT Internal Medicine; ATTEND Internal Medicine
PROC: 05HY33Z Insertion of Infusion Device into Upper Vein, Percutaneous Approach (ICD-10-PCS; 2019-08-08)
PROC: B54MZZA Ultrasonography of Right Upper Extremity Veins, Guidance (ICD-10-PCS; 2019-08-08)
PROC: 0DJ68ZZ Inspection of Stomach, Via Natural or Artificial Opening Endoscopic (ICD-10-PCS; 2019-08-11)
PROC: 30233N1 Transfusion of Nonautologous Red Blood Cells into Peripheral Vein, Percutaneous Approach (ICD-10-PCS; principal; 2019-08-12)
DX: A41.9 Sepsis, unspecified organism (principal); G93.41 Metabolic encephalopathy; I50.33 Acute on chronic diastolic (congestive) heart failure; L03.115 Cellulitis of right lower limb; N39.0 Urinary tract infection, site not specified; E87.1 Hypo-osmolality and hyponatremia; N17.9 Acute kidney failure, unspecified; D68.9 Coagulation defect, unspecified; E72.20 Disorder of urea cycle metabolism, unspecified; I13.0 Hypertensive heart and chronic kidney disease with heart failure and stage 1 through stage 4 chronic kidney disease, or unspecified chronic kidney disease; K92.2 Gastrointestinal hemorrhage, unspecified; K90.9 Intestinal malabsorption, unspecified; E03.9 Hypothyroidism, unspecified; R62.7 Adult failure to thrive; M51.36 Other intervertebral disc degeneration, lumbar region; B96.20 Unspecified Escherichia coli [E. coli] as the cause of diseases classified elsewhere; D64.9 Anemia, unspecified; E11.22 Type 2 diabetes mellitus with diabetic chronic kidney disease; E11.51 Type 2 diabetes mellitus with diabetic peripheral angiopathy without gangrene; E11.621 Type 2 diabetes mellitus with foot ulcer; E87.6 Hypokalemia; F03.90 Unspecified dementia, unspecified severity, without behavioral disturbance, psychotic disturbance, mood disturbance, and anxiety; I83.009 Varicose veins of unspecified lower extremity with ulcer of unspecified site; I89.0 Lymphedema, not elsewhere classified; K44.9 Diaphragmatic hernia without obstruction or gangrene; K76.0 Fatty (change of) liver, not elsewhere classified; L60.3 Nail dystrophy; L97.519 Non-pressure chronic ulcer of other part of right foot with unspecified severity; L97.529 Non-pressure chronic ulcer of other part of left foot with unspecified severity; M19.90 Unspecified osteoarthritis, unspecified site; M85.88 Other specified disorders of bone density and structure, other site; N18.9 Chronic kidney disease, unspecified; Z91.81 History of falling; Z86.711 Personal history of pulmonary embolism; Z86.718 Personal history of other venous thrombosis and embolism; Z95.828 Presence of other vascular implants and grafts; Z98.84 Bariatric surgery status; Z68.23 Body mass index [BMI] 23.0-23.9, adult; Z79.899 Other long term (current) drug therapy
CPT/HCPCS: 36415; 71045; 72100; 72148; 73522; 73700; 74177; 76700; 76937; 80048; 80053; 80061; 80202; 81003; 82140; 82550; 82553; 83605; 83880; 84145; 84439; 84443; 84484; 85014; 85018; 85025; 86850; 86870; 86900; 86920; 87077; 87186; 93005; 93306; 93923; 99285; C1725; C1769; C9113; J1650; J2250; J2270; J2405; J2543; J3010; J3370; J3430; J3490; J7030; J7060; P9016; Q9967

== ENCOUNTER 2019-09-16 09:40 | Inpatient (IN) | payer OTHER, MEDICAID ==
[~2019-09-16] VITALS: Ht 160 cm; Wt 77.6 kg
[2019-09-16] MEDS ORDERED: FAMOTIDINE 20MG/2ML VIAL IV STA (09:54)
[2019-09-16] MEDS ORDERED: MORPHINE SULFATE 4 MG/ML CPJ (NOT FOR IM USE) IV STA (09:54)
[2019-09-16] MEDS ORDERED: SODIUM CHLORIDE 0.9% 500 ML IV ONE (09:54)
[2019-09-16 10:48] LABS: HEMATOCRIT. 23.5 % (36.0-48.0); HEMOGLOBIN. 8.1 g/dL (12.0-16.0); MEAN CORPUSCULAR HEMOGLOBIN 32.6 pg (28.0-32.0); MEAN CORPUSCULAR VOLUME 94.2 fL (81.0-99.0); MEAN PLATELET VOLUME 8.9 fl (7.4-10.4); PLATELET 249 x1000/uL (130-400); RED BLOOD CELL COUNT 2.49 mill/uL (4.2-5.4); RED CELL DISTRIBUTION WIDTH 20.8 % (11.6-14.6)
[2019-09-16 10:56] LABS: CHLORIDE 113 mEq/L (98-107)
[2019-09-16 11:07] LABS: INR 1.3; PROTHROMBIN TIME 13.6 sec (9.6-11.0)
[2019-09-16 11:22] LABS: CLARITY URINE TURBID (CLEAR); COLOR URINE DK YELLOW (YELLOW); KETONES URINE NEGATIVE (NEGATIVE); LEUKOCYTE ESTERASE URINE 3+ (NEGATIVE); NITRITE URINE NEGATIVE (NEGATIVE); OCCULT BLOOD URINE TRACE (NEGATIVE); PH URINE 8.5 (4.5-8.0); PROTEIN URINE 1+ (NEGATIVE); SPECIFIC GRAVITY URINE 1.009 (1.005-1.030)
[2019-09-16 11:30] LABS: NUCLEATED RED BLOOD CELLS 1 /100 WBC; PLATELET ESTIMATE NORMAL
[2019-09-16] MEDS ORDERED: CEFTRIAXONE 1 G PREMIX 50 ML IV ONE (11:30)
[2019-09-16] MEDS ORDERED: DEXTROSE 50% WATER 50ML SYRINGE IV ONE (12:15)
[2019-09-16] MEDS ORDERED: FUROSEMIDE 40MG/4ML VIAL IVP NR (13:45)
[2019-09-16] MEDS ORDERED: NA PHOS,M-B/NA PHOS,DI-BA ENEMA 118ML PR PRN (13:45)
[2019-09-16] MEDS ORDERED: HYDROCODONE/ACETAMINOPHEN 5/325MG TABLET PO PRN (13:45)
[2019-09-16] MEDS ORDERED: DEXT 10% WATER 500 ML IV ONE (13:45)
[2019-09-16] MEDS ORDERED: GUAIFENESIN 200MG/10ML SUGAR FREE UDC PO PRN (13:45)
[2019-09-16] MEDS ORDERED: LORAZEPAM 0.5MG TABLET PO PRN (13:45)
[2019-09-16] MEDS ORDERED: PIPERACILLIN/TAZOBACTAM 3.375 G in DEXT 5% WATER 100 ML IV SCH (13:45)
[2019-09-16] MEDS ORDERED: DOCUSATE SODIUM 100MG CAPSULE PO PRN (13:45)
[2019-09-16] MEDS ORDERED: ACETAMINOPHEN 650MG/20.3ML UDC GT PRN (13:45)
[2019-09-16] MEDS ORDERED: CLONIDINE 0.1MG TABLET PO PRN (13:45)
[2019-09-16] MEDS ORDERED: DEXTROSE 50% WATER 50ML SYRINGE IV PRN (13:45)
[2019-09-16] MEDS ORDERED: IPRATROPIUM/ALBUTEROL 0.5-3(2.5)MG/3ML NEB NEB PRN (13:45)
[2019-09-16] MEDS ORDERED: MAGNESIUM/ALUMINUM HYDROXIDE/SIMETHICONE 30ML UDC PO PRN (13:45)
[2019-09-16] MEDS ORDERED: DIPHENHYDRAMINE 50MG/ML VIAL IV PRN (13:45)
[2019-09-16] MEDS ORDERED: ACETAMINOPHEN 325MG TABLET PO PRN (13:45)
[2019-09-16] MEDS: BLOOD SUGAR DIAGNOSTIC STRIP TEST SCH ×5 (15:00→22:38)
[2019-09-16 16:54] VITALS: BP 115/62
[2019-09-16 18:00] VITALS: BP 112/67
[2019-09-16] MEDS: PIPERACILLIN/TAZOBACTAM 2.25 G in DEXTROSE 5% WATER 50 ML IV SCH (19:43)
[2019-09-16 20:12] VITALS: BP 107/71
[2019-09-16] MEDS: FAMOTIDINE 20MG TABLET PO SCH (21:55)
[2019-09-16 22:12] VITALS: BP 116/67
[2019-09-16] MEDS ORDERED: POTASSIUM CHLORIDE 20MEQ/PACKET PO SCH (22:15)
[2019-09-17] VITALS (23 sets, daily range): BP systolic 99–128; BP diastolic 66–80
[2019-09-17] MEDS: PIPERACILLIN/TAZOBACTAM 2.25 G in DEXTROSE 5% WATER 50 ML IV SCH ×2 (02:16→11:28)
[2019-09-17] MEDS: BLOOD SUGAR DIAGNOSTIC STRIP TEST SCH ×9 (02:23→22:00)
[2019-09-17 08:32] LABS: CHLORIDE 111 mEq/L (98-107)
[2019-09-17 08:33] LABS: INR 1.3; PROTHROMBIN TIME 13.6 sec (9.6-11.0)
[2019-09-17 08:38] LABS: BASOPHILS % 0.4 % (0.0-2.0); EOSINOPHILS % 0.6 % (0.0-5.0); LYMPHOCYTES % 17.6 % (20.0-50.0); MEAN CORPUSCULAR HEMOGLOBIN 32.2 pg (28.0-32.0); MEAN CORPUSCULAR VOLUME 93.4 fL (81.0-99.0); MEAN PLATELET VOLUME 8.6 fl (7.4-10.4); MONOCYTES % 7.4 % (2.0-8.0); PLATELET 205 x1000/uL (130-400); RED CELL DISTRIBUTION WIDTH 20.9 % (11.6-14.6)
[2019-09-17 08:41] LABS: T4 FREE 0.93 ng/dL (0.76-1.46)
[2019-09-17 08:45] LABS: HEMATOCRIT. 18.7 % (36.0-48.0); HEMOGLOBIN. 6.5 g/dL (12.0-16.0)
[2019-09-17] MEDS: POTASSIUM CHLORIDE 20MEQ/PACKET PO NR ×2 (14:00→16:20)
[2019-09-17 15:38] LABS: VITAMIN B12 SERUM 1426 pg/mL (211-911)
[2019-09-17] MEDS: LEVOTHYROXINE SODIUM 50MCG TABLET PO SCH (16:20)
[2019-09-17] MEDS: FUROSEMIDE 40MG/4ML VIAL IVP SCH (16:21)
[2019-09-17] MEDS ORDERED: DEXT 5% WATER + KCL 40MEQ/L 1,000 ML IV ONE (17:15)
[2019-09-17] MEDS ORDERED: POTASSIUM CHLORIDE INJ 40 MEQ in DEXT 5% WATER 500 ML IV NR (18:30)
[2019-09-17] MEDS: PIPERACILLIN/TAZOBACTAM 3.375 G in DEXT 5% WATER 100 ML IV SCH (20:24)
[2019-09-17] MEDS: FAMOTIDINE 20MG TABLET PO SCH (21:41)
[2019-09-17 23:15] LABS: HEMATOCRIT 34.1 % (36.0-48.0); HEMOGLOBIN 11.8 g/dL (12.0-16.0)
[2019-09-18] VITALS (10 sets, daily range): BP systolic 100–131; BP diastolic 73–84
[2019-09-18] MEDS: PIPERACILLIN/TAZOBACTAM 3.375 G in DEXT 5% WATER 100 ML IV SCH ×3 (01:23→17:36)
[2019-09-18] MEDS ORDERED: TEMAZEPAM 15MG CAPSULE PO PRN (02:30)
[2019-09-18] MEDS: BLOOD SUGAR DIAGNOSTIC STRIP TEST SCH ×6 (04:00→20:07)
[2019-09-18 06:12] LABS: CHLORIDE 110 mEq/L (98-107)
[2019-09-18] MEDS: LEVOTHYROXINE SODIUM 50MCG TABLET PO SCH (06:24)
[2019-09-18 06:25] LABS: PHOSPHORUS 1.4 mg/dL (2.5-4.9)
[2019-09-18 06:39] LABS: BASOPHILS % 0.3 % (0.0-2.0); EOSINOPHILS % 0.8 % (0.0-5.0); HEMATOCRIT. 32.3 % (36.0-48.0); HEMOGLOBIN. 11.2 g/dL (12.0-16.0); LYMPHOCYTES % 25.6 % (20.0-50.0); MEAN CORPUSCULAR HEMOGLOBIN 28.5 pg (28.0-32.0); MEAN CORPUSCULAR VOLUME 82.2 fL (81.0-99.0); MEAN PLATELET VOLUME 8.2 fl (7.4-10.4); MONOCYTES % 7.3 % (2.0-8.0); PLATELET 145 x1000/uL (130-400); RED BLOOD CELL COUNT 3.93 mill/uL (4.2-5.4); RED CELL DISTRIBUTION WIDTH 26.1 % (11.6-14.6)
[2019-09-18] MEDS: FUROSEMIDE 40MG/4ML VIAL IVP SCH (08:13)
[2019-09-18] MEDS: POTASSIUM-SODIUM PHOSPHATE POWDER PACKET PO SCH ×2 (11:16→16:46)
[2019-09-18] MEDS ORDERED: MAGNESIUM 2 G PREMIX 50 ML IV ONE (12:00)
[2019-09-18 12:58] LABS: HEMATOCRIT 40.9 % (36.0-48.0); HEMOGLOBIN 13.9 g/dL (12.0-16.0)
[2019-09-18] MEDS ORDERED: LEVO500T2 MT (14:28)
[2019-09-18] MEDS: FAMOTIDINE 20MG TABLET PO SCH (20:08)
[2019-09-19] VITALS (9 sets, daily range): BP systolic 116–144; BP diastolic 68–93
[2019-09-19] MEDS: BLOOD SUGAR DIAGNOSTIC STRIP TEST SCH ×4 (00:30→11:17)
[2019-09-19] MEDS: PIPERACILLIN/TAZOBACTAM 3.375 G in DEXT 5% WATER 100 ML IV SCH ×2 (02:00→10:00)
[2019-09-19] MEDS: LEVOTHYROXINE SODIUM 50MCG TABLET PO SCH (06:26)
[2019-09-19 06:49] LABS: HEMATOCRIT 32.4 % (36.0-48.0); HEMOGLOBIN 11.2 g/dL (12.0-16.0); MEAN CORPUSCULAR HEMOGLOBIN 28.5 pg (28.0-32.0); MEAN CORPUSCULAR VOLUME 82.1 fL (81.0-99.0); PLATELET 130 x1000/uL (130-400); RED BLOOD CELL COUNT 3.95 mill/uL (4.2-5.4); RED CELL DISTRIBUTION WIDTH 26.7 % (11.6-14.6)
[2019-09-19 06:55] LABS: CHLORIDE 108 mEq/L (98-107)
[2019-09-19] MEDS: FUROSEMIDE 40MG/4ML VIAL IVP SCH (08:32)
[2019-09-19] MEDS: POTASSIUM-SODIUM PHOSPHATE POWDER PACKET PO SCH (08:35)
[2019-09-19] MEDS ORDERED: POTASSIUM CHLORIDE INJ 40 MEQ in DEXT 5% WATER 250 ML IV NR (13:00)
[2019-09-19] MEDS ORDERED: MEGESTROL ACETATE 400 MG/10 ML UDC PO SCH (14:00)
== END 2019-09-19 15:53 | DRG 871 ==
LOC: ER 09:52 → 3WST 12:15 → ENRESERV 12:51 → CANRESERV 12:51 → ENRESERV 14:16
PROVIDERS: ADMIT Internal Medicine; ATTEND Internal Medicine
PROC: 02HV33Z Insertion of Infusion Device into Superior Vena Cava, Percutaneous Approach (ICD-10-PCS; 2019-09-16)
PROC: B548ZZA Ultrasonography of Superior Vena Cava, Guidance (ICD-10-PCS; 2019-09-16)
PROC: B5181ZA Fluoroscopy of Superior Vena Cava using Low Osmolar Contrast, Guidance (ICD-10-PCS; 2019-09-16)
PROC: 30233N1 Transfusion of Nonautologous Red Blood Cells into Peripheral Vein, Percutaneous Approach (ICD-10-PCS; principal; 2019-09-17)
PROC: 0W9B3ZZ Drainage of Left Pleural Cavity, Percutaneous Approach (ICD-10-PCS; 2019-09-17)
DX: A41.9 Sepsis, unspecified organism (principal); I50.33 Acute on chronic diastolic (congestive) heart failure; E43 Unspecified severe protein-calorie malnutrition; J18.9 Pneumonia, unspecified organism; I13.0 Hypertensive heart and chronic kidney disease with heart failure and stage 1 through stage 4 chronic kidney disease, or unspecified chronic kidney disease; N39.0 Urinary tract infection, site not specified; G93.49 Other encephalopathy; E11.649 Type 2 diabetes mellitus with hypoglycemia without coma; D64.9 Anemia, unspecified; R62.7 Adult failure to thrive; N18.9 Chronic kidney disease, unspecified; E11.22 Type 2 diabetes mellitus with diabetic chronic kidney disease; E03.9 Hypothyroidism, unspecified; E87.6 Hypokalemia; E66.9 Obesity, unspecified; M19.90 Unspecified osteoarthritis, unspecified site; B96.4 Proteus (mirabilis) (morganii) as the cause of diseases classified elsewhere; B96.20 Unspecified Escherichia coli [E. coli] as the cause of diseases classified elsewhere; E83.39 Other disorders of phosphorus metabolism; E83.42 Hypomagnesemia; E86.0 Dehydration; E87.8 Other disorders of electrolyte and fluid balance, not elsewhere classified; Z95.828 Presence of other vascular implants and grafts; Z86.718 Personal history of other venous thrombosis and embolism; Z98.84 Bariatric surgery status; Z88.8 Allergy status to other drugs, medicaments and biological substances; Z79.84 Long term (current) use of oral hypoglycemic drugs; Z79.891 Long term (current) use of opiate analgesic; Z79.899 Other long term (current) drug therapy; Z90.49 Acquired absence of other specified parts of digestive tract; Z68.30 Body mass index [BMI] 30.0-30.9, adult; Z86.711 Personal history of pulmonary embolism
CPT/HCPCS: 32555; 36415; 36573; 71045; 74176; 76937; 80048; 80053; 81003; 82040; 82607; 82652; 82962; 83615; 83735; 84100; 84439; 84443; 84478; 85014; 85018; 85025; 85027; 85044; 86850; 86870; 86900; 86920; 87077; 87186; 93970; 96365; 97162; 99285; C1725; J0696; J1940; J2270; J2543; J3475; J3480; J3490; J7030; J7060; P9016